=== PATIENT | female | born 1980 | race Caucasian/White ===

== ENCOUNTER 2021-04-28 07:21 | Observation (INO) | payer BC ==
[~2021-04-28] VITALS: Ht 165.1 cm; Wt 90.5 kg
[2021-04-28 07:52] LABS: BASOPHILS 0.9 % (0-2); EOSINOPHILS 0.9 % (0-7); HEMATOCRIT 34.9 % (36.0-48.0); LYMPHOCYTES 20.5 % (15-50); MCH 29.7 pg (26.0-34.0); MCHC 34.4 g/dL (31.0-37.0); MCV 86.3 fL (80.0-100.0); MEAN PLATELET VOLUME 6.8 fL (7.4-10.4); MONOCYTES 11.8 % (2-11); NEUTROPHILS 65.9 % (40-80); RBC 4.05 10x6/uL (4.00-5.40); RDW 12.6 % (11.5-14.5); WBC 11.7 10x3/uL (4.8-10.8)
[2021-04-28] MEDS ORDERED: NEXIUM20 MG PO (07:54)
[2021-04-28] MEDS ORDERED: TENORMIN25 MG PO (07:54)
[2021-04-28 07:57] LABS: CALC OSMOLALITY 276 mosm/kg (275-300); CARBON DIOXIDE 26.3 mmol/L (21.0-32.0); CHLORIDE - SERUM 104 mmol/L (98-107); CREATININE - SERUM 0.6 mg/dL (0.6-1.3); GLUCOSE 117 mg/dL (74-106); PLATELET COUNT 489 10x3/uL (130-400); POTASSIUM - SERUM 3.9 mmol/L (3.5-5.1); SODIUM 139 mmol/L (136-145); UREA NITROGEN 8 mg/dL (7-18); eGFR NON AFRICAN AMERICAN > 90 mL/min (90-120)
[2021-04-28 08:07] LABS: ALBUMIN 3.2 g/dL (3.4-5.0); ALKALINE PHOSPHATASE 121 U/L (30-120); ALT (SGPT) 51 U/L (10-68); AMYLASE - SERUM 32 U/L (25-115); BILIRUBIN - TOTAL 0.59 mg/dL (0.2-1.3); LIPASE 55 U/L (73-393); PROTEIN - SERUM 7.5 g/dL (6.4-8.2)
[2021-04-28 08:08] LABS: TROPONIN-I < 0.017 ng/mL (0.000-0.060)
[2021-04-28 08:21] LABS: BILIRUBIN NEGATIVE (NEGATIVE); KETONE NEGATIVE (NEGATIVE); NITRITE NEGATIVE (NEGATIVE); UROBILINOGEN NORMAL mg/dL (< 2)
[2021-04-28 08:23] LABS: HCG URINE NEGATIVE (NEGATIVE)
[2021-04-28 10:25] VITALS: BP 112/67
--- NOTE | 2021-04-28 16:14 | NUR ---
DR. OVIDIO CHANCE PT ADMITTED TO OBSERVATION, NOTIFIED [facility]. SHE CALLED FOR STAT CLEAN ON 2226.
--- NOTE | 2021-04-28 16:48 | NUR ---
1630-PT IS FINISHED WITH RECOVERY PHASE 1, BED IS NOT CLEAN ON FLOOR. WILL CONTINUE TO HOLD PT IN PACU... 1640- FLOOR BED STILL NOT CLEAN, WILL CONTINUE TO HOLD PATIENT IN PACU.
[2021-04-28 17:29] VITALS: BP 128/75
--- NOTE | 2021-04-28 17:30 | NUR ---
TO ROOM. SITUATED COMFORTABLY. VITAL SIGNS STABLE. DENIES ANY NEEDS AT THIS TIME. BED IN LOWEST POSITION, BED RAILS X2, CALL LIGHT WITHIN REACH. WILL CONTINUE POC.
[2021-04-28] MEDS ORDERED: KLONOPIN1 MG PO (17:34)
--- NOTE | 2021-04-28 18:09 | NUR ---
IV FLUIDS HUNG. RESTING COMFORTABLY. WILL CONTINUE POC.
[2021-04-28 20:00] VITALS: BP 135/80
[2021-04-29 01:03] VITALS: BP 132/78; Ht 165.1 cm; Wt 90.5 kg
--- NOTE | 2021-04-29 03:14 | NUR ---
I have reviewed this patient and I concur with the Shift Assessment completed by the Licensed Practical Nurse today this shift.
[2021-04-29 04:00] VITALS: BP 126/69
--- NOTE | 2021-04-29 06:11 | NUR ---
PT WAS A THER DOOR AND REQUESTED ARNIE TO HELP HER. PT WAS CRYING AND STATED THAT SHE WAS ON THE CALL LIGHT FOR 30 MINUTES SHE WAS PRESSING THE RED BOTTON AND THE WALL, ARNIE EXPLAINED HER THAT SHE DOESN'T NEED TO PUSH THE LIGHT IN THE WALL BECAUSE IT TURNS OFF THE LIGHT OUTSIDE. PT EXPRESS THAT SHE WAS IN PAIN AND REQUESTED A DOSE OF PAIN MED TO HELP BOLUS WAS PROVIDED FOR PT, WILL CONT TO MONITOR.
[2021-04-29 06:23] LABS: BASOPHILS 0.3 % (0-2); EOSINOPHILS 0 % (0-7); HEMATOCRIT 35.1 % (36.0-48.0); HEMOGLOBIN 11.7 g/dL (12-16); LYMPHOCYTES 7.2 % (15-50); MCH 29.1 pg (26.0-34.0); MCHC 33.4 g/dL (31.0-37.0); MCV 87.2 fL (80.0-100.0); MONOCYTES 8.1 % (2-11); NEUTROPHILS 84.4 % (40-80); PLATELET COUNT 420 10x3/uL (130-400); RBC 4.03 10x6/uL (4.00-5.40); RDW 12.4 % (11.5-14.5); WBC 12.7 10x3/uL (4.8-10.8)
[2021-04-29 06:40] LABS: ALBUMIN 2.6 g/dL (3.4-5.0); ALKALINE PHOSPHATASE 110 U/L (30-120); BILIRUBIN - TOTAL 0.45 mg/dL (0.2-1.3); CALC OSMOLALITY 276 mosm/kg (275-300); CALCIUM 8.9 mg/dL (8.5-10.1); CHLORIDE - SERUM 106 mmol/L (98-107); CREATININE - SERUM 0.6 mg/dL (0.6-1.3); GLUCOSE 113 mg/dL (74-106); POTASSIUM - SERUM 4.1 mmol/L (3.5-5.1); PROTEIN - SERUM 7.4 g/dL (6.4-8.2); SODIUM 139 mmol/L (136-145); UREA NITROGEN 8 mg/dL (7-18); eGFR NON AFRICAN AMERICAN > 90 mL/min (90-120)
[2021-04-29 06:41] LABS: ALT (SGPT) 68 U/L (10-68)
--- NOTE | 2021-04-29 08:00 | NUR ---
PATIENT IN BED WITH EYES CLOSED RESTING QUIETLY AT THIS TIME. IV INTACT. NS AND AT RISK SPECIALIST ON. NO COMPLAINTS OR SIGNS OF DISTRESS. CALL LIGHT WITHIN REACH.
[2021-04-29 08:46] VITALS: BP 139/79
[2021-04-29] MEDS ORDERED: COLACE100 MG PO (08:51)
[2021-04-29] MEDS ORDERED: HYDROCODON-ACE1 EA10 PO (08:51)
--- NOTE | 2021-04-29 11:37 | NUR ---
PATIENT IN BED WAS RESTING BUT WOKE UP AND STATED NAUSEATED AT THIS TIME. ZOFRAN GIVEN IVP. CALL LIGHT WITHIN REACH.
[2021-04-29 13:10] VITALS: BP 133/81
--- NOTE | 2021-04-29 13:48 | NUR ---
PATIENT UP AMBULATING IN [place] WITH DAUGHTER.
--- NOTE | 2021-04-29 14:20 | NUR ---
PATIENT IN BED. STATING THAT ZOFRAN IS NOT HELPING AT THIS TIME AND IS STILL VERY NAUSEATED. EXPLAINED I WOULD TALK TO TIMOTHY. VERBALIZED UNDERSTANDING.
--- NOTE | 2021-04-29 15:00 | NUR ---
PATIENT RECIEVED REGLAN IVP BY KIN ROBLES AT THIS TIME PER INIDA ORDER. ALSO GIVEN MINERAL OIL TO HELP WITH BM. PATIENT FAMILY AT BEDSIDE. CALL LIGHT WITHIN REACH.
--- NOTE | 2021-04-29 16:33 | NUR ---
PATIENT THREW UP SMALL AMOUNT AT THIS TIME. UP TO SHOWER WITH AND DAUGHTER. WILL CONTINUE TO MONITOR.
--- NOTE | 2021-04-29 17:44 | NUR ---
PATIENT RECIEVED PHERNERGAN IM. ONE TIME DOSE BY TIMOTHY PHELPS. GIVEN BY RENE ROBLES. PATIENT STILL VOMITTING YELLOW COLOR EMESIS. WILL CONTINUE TO MONITOR. CALL LIGHT WITHIN REACH.
[2021-04-29 17:55] VITALS: BP 142/75
--- NOTE | 2021-04-29 18:50 | NUR ---
STATED THAT PATIENT IS SLEEPING NOW AND HASNT THROWN UP IN OVER AN HOUR. REPORT GIVEN TO NIGHT NURSE.
--- NOTE | 2021-04-29 19:53 | NUR ---
SPOKE WITH DR. GUO ABOUT PATIENT STILL NAUSEATED AND VOMITTING. NEW ORDERS RECIEVED. NOTIFIED NIGHT NURSE.
[2021-04-29 20:00] VITALS: BP 137/73
--- NOTE | 2021-04-29 20:00 | NUR ---
DUCOLAX SUPP GIVEN ORDERED, ZOFRAN GIVEN FOR CONTINUED NAUSEA AND VOMITING, REQUESTING PAIN PILL,INSTRUCTED WILL WAIT FRO A FEW MINUITES BEFORE TRYING PAIN MED
--- NOTE | 2021-04-29 20:37 | NUR ---
REPORTED SHE PASSED GAS, TRYING TO AVOID PAIN MEDS, ENCOURAGED TO WALK
--- NOTE | 2021-04-29 22:30 | NUR ---
PT REQUESTING IV PAIN MEDS DUE TO N/V, ATTEMPTED TO CALL DR GUO X 3 WITH [facility] SAYING NOT AVAILABLE, PT RESTING AT THIS TIME EYES CLOSED
[2021-04-30] VITALS: BP 147/82
--- NOTE | 2021-04-30 02:23 | NUR ---
REPORTS HAD BM, NAUSEA VOMITING CONTINUES
[2021-04-30 04:00] VITALS: BP 148/90
[2021-04-30 09:14] VITALS: BP 161/82
--- NOTE | 2021-04-30 09:59 | NUR ---
DC EDUCATIO PROVIDED BOTH WRITTEN AND VERBAL TO PATIENT AND AT BEDSIDE. BOTH DENY FURTHER NEED OR QUESTIONS. IV REMOVED FROM LFA WITH TIP INTACT. PATIENT DC HOME WITH ALL BELONGINGS AND RX FOR PRN PAIN MEDICATION AND STOOL SOFTENER. PATIENT HAD BM ON PM SHIFT.
--- NOTE | 2021-04-30 10:32 | NUR ---
PATIENT WAS GIVEN ODT ZOFRAN AND PRN PAIN MEDICATION PRIOR TO DC HOME PER PATIENT REQUEST. PRIOR TO GIVING DC INSTRUCTIONS, PATIENT'S WAS AT DESK SAYING PATIENT HAD BEEN IN HOSPITAL THREE DAYS AND WAS READY TO LEAVE. ALSO STATED PATIENT HAD BM ON JINRIKSHA DRIVER. PATIENT WAS NOT THROWING UP AND HAD NOT THROWN UP ON AM SHIFT THIS MORNING BUT SAID WAS NAUSEAS. ASKED PATIENT AND IF THEY WERE COMFORTABLE BEING DC HOME AND BOTH STATED WERE READY TO BE DISCHARGED. SINCE PATIENT HAD THREE HOUR RIDE HOME, EMESIS BAG X 2 WERE PROVIDED. PATIENT AND DENIED FURTHER NEEDS. PATIENT WAS WHEELED OUT THROUGH ER WITH ALL BELONGINGS. NO VOMITING ON RIDE TO ER. RIGHT AFTER PATIENT LEFT, RECEIVED CALL FROM DR NOLAN. DR NOLAN STATES THAT PATIENT'S TEXTED HIM TO NOTIFY HIM THAT PATIENT WAS DISCHARGED EVEN THOUGH SHE WAS "THROWING UP ON HER RIDE OUT IN THE WHEELCHAIR." PREVIOUSLY STATED, PATIENT WAS NOT THROWING UP DURING DISCHARGE AND DID NOT EXPRESS CONCERNS ABOUT BEING DISCHARGED HOME.
--- NOTE | 2021-05-13 12:37 | OP ---
PATIENT NAME: LEE FLANAGAN MEDICAL RECORD: [id number] :80 LOCATION:D.MS [id number] ADMISSION DATE:04/28/21 SURGEON: NATALIO NOLAN MD DATE OF OPERATION: 04/28/2021 PREOPERATIVE DIAGNOSES: 1. Symptomatic gallstones. 2. Possible appendicitis by CT scan. POSTOPERATIVE DIAGNOSES: 1. Symptomatic gallstones. 2. Possible appendicitis by CT scan. 3. Hepatomegaly. PROCEDURE: 1. Laparoscopic cholecystectomy. 2. Intraoperative cholangiography without immediate surgeon interpretation. 3. A 14-gauge core needle liver biopsies. 4. Laparoscopic appendectomy. SURGEON: Natalio Nolan M.D. PRINTER SMALL PRINT SHOP: None. BLOOD LOSS: Minimal. ANESTHESIA: General. COMPLICATIONS: None. The risks, possible complications, and alternatives to the procedure were explained to the patient. She elects to proceed. The discussion specifically included, but was not limited to, bleeding requiring An emergency reoperation, infection, intestinal injury as well as staple line leakage. The indication for the liver biopsy was hepatomegaly. OPERATIVE COURSE: The patient was conveyed to the operating room electively on 04/28/2021. General anesthesia was induced by the anesthesia staff. The abdomen was sterilely prepped and draped. An incision was accomplished within the umbilicus. I dissected down to the level of a small incarcerated umbilical hernia. Incarcerated preperitoneal fat was excised. I then sharply cleaned the connective tissue from around the umbilical fascial defect. Stay sutures of 0 Vicryl were placed on either side of the umbilicus. I incised the fascia in the midline. I entered the peritoneal cavity bluntly. A 12-mm trocar was placed. CO2 insufflation was begun. Once a sufficient pneumoperitoneum had been achieved 3 more trocars were inserted. One was inserted in the left upper quadrant. One was inserted in the epigastrium and one was inserted in the right upper quadrant. These were 5-mm trocars. During insertion of the trocars, there was no apparent injury to the bowels, any intraperitoneal or retroperitoneal structures. An abdominal survey was undertaken and I noted no acute inflammatory process. The liver was enlarged and that was indication for a OPERATIVE REPORT [id number] LEE FLANAGAN liver biopsy. Under laparoscopic guidance, I percutaneously accessed the right upper quadrant utilizing a 14-guage core biopsy device. Cores were obtained over the convexity of the liver. The biopsy sites were made hemostatic with electrocautery. The gallbladder was grasped at tip. I advanced a cholangiogram trocar. I punctured the fundus of the gallbladder. I aspirated bile. I then injected dye. Under real time fluoroscopy, static images were obtained and these are cholangiographic images that were sent to the radiologist for interpretation. I aspirated bile and removed the cholangiogram trocar. The gallbladder was retracted cephalad. The infundibulum was retracted laterally. Blunt dissection was begun in the triangle of Calot. One the cystic artery and one cystic duct were identified. These were clipped multiple and divided between clips. The gallbladder was then excised from its bed in the liver. It was placed within a bag retrieval device and was withdrawn through the umbilical fascial defect. A 12 mm trocars were placed and the abdomen reinsufflated. I irrigated and aspirated in the right upper quadrant. There was no bleeding even at low pressure of 8. The patient was then positioned in the Trendelenburg position and tilted to the left. Utilizing the same trocar sites I was able to identify the appendix, which did appear inflamed. It was retracted anteriorly. The mesoappendix was taken down with the laparoscopic EnSeal device. I dissected down to the base of the appendix. I stapled across the tip of the cecum with an Endo-KARLA type stapler utilizing a blue load. The appendix was placed within a bag retrieval device and was withdrawn through the umbilical fascial defect. A 12 mm trocar was placed and the abdomen reinsufflated. I irrigated and aspirated in the right upper quadrant. There was no bleeding even at low pressure of 8. All the trocars were removed and the abdomen desufflated. The umbilical fascial defect was closed with multiple 0 Vicryl sutures and this also closed the umbilical hernia defect. The skin was approximated with an intracuticular 3-0 Vicryl. The rest of the skin closure was accomplished with interrupted intradermic interrupted 4-0 Vicryl Rapide sutures. Trocar sites were closed with interrupted intracuticular 3-0 Vicryls. Benzoin and Steri-Strips were applied. The patient was then extubated and conveyed to post-anesthesia care unit. TRANSINT:[id number] Voice Confirmation ID: [id number] DOCUMENT ID: [id number] OPERATIVE REPORT [id number] LEE FLANAGAN, NATALIO LONDON at 1237 CC: [id number] DICTATION DATE: 05/13/21 1017 YOGHURT MAKER: 05/13/21 1049 DIS IN 04/30/21 [place] [id number] [place] [id number]
== END 2021-04-30 10:07 | disposition home or self-care (01) ==
LOC: D.ER 07:21 → D.MS 16:19 → OBSVTIME 16:19 → D.MS 04-30 10:07
PROVIDERS: Family Medicine; ADMIT Surgery; ATTEND Surgery
DX: K37 Unspecified appendicitis (principal); K80.20 Calculus of gallbladder without cholecystitis without obstruction; R10.9 Unspecified abdominal pain; I10 Essential (primary) hypertension; K21.9 Gastro-esophageal reflux disease without esophagitis

== ENCOUNTER 2021-05-03 16:45 | Inpatient (IN) | payer BC ==
[~2021-05-03] VITALS: Ht 165.1 cm; Wt 98.2 kg
[~2021-05-03 16:45] MED LIST: COLACE100 MG PO; HYDROCODON-ACE1 EA10 PO; KLONOPIN1 MG PO; NEXIUM20 MG PO; TENORMIN25 MG PO
[2021-05-03 20:00] VITALS: BP 167/91
[2021-05-03 21:00] VITALS: BP 138/84
[2021-05-03 22:00] VITALS: BP 154/92
[2021-05-03 22:00] LABS: HEMATOCRIT 25.7 % (36.0-48.0); HEMOGLOBIN 8.5 g/dL (12-16); MCH 29.3 pg (26.0-34.0); MCHC 32.9 g/dL (31.0-37.0); MCV 89.1 fL (80.0-100.0); MEAN PLATELET VOLUME 7.4 fL (7.4-10.4); PLATELET COUNT 300 10x3/uL (130-400); RBC 2.89 10x6/uL (4.00-5.40); RDW 13.2 % (11.5-14.5); WBC 26.6 10x3/uL (4.8-10.8)
[2021-05-03 22:09] LABS: APTT 24.3 SECONDS (22.8-39.4)
[2021-05-03 22:10] LABS: INR 1.37 (0.85-1.17); PROTIME 15.6 SECONDS (11.6-15.0)
[2021-05-03 22:16] LABS: ALBUMIN 1.9 g/dL (3.4-5.0); ANION GAP 11.6 mmol/L (8-16); BILIRUBIN - TOTAL 0.57 mg/dL (0.2-1.3); CALCIUM 8.5 mg/dL (8.5-10.1); CARBON DIOXIDE 30.4 mmol/L (21.0-32.0); CREATININE - SERUM 2.8 mg/dL (0.6-1.3); MAGNESIUM - SERUM 2.3 mg/dL (1.8-2.4); PHOSPHOROUS 4.3 mg/dL (2.5-4.9); PROTEIN - SERUM 6.4 g/dL (6.4-8.2)
[2021-05-03 22:37] LABS: EOSINOPHILS 3 % (0-7); LYMPHOCYTES 6 % (15-50); MONOCYTES 2 % (2-11); NEUTROPHILS 89 % (40-80); PLATELET ESTIMATE NORMAL
[2021-05-03 23:00] VITALS: BP 155/89
[2021-05-04] VITALS (25 sets, daily range): BP systolic 131–171; BP diastolic 76–102; BMI 36.6; BMI 36.7
[2021-05-04 04:51] LABS: BASOPHILS 0.2 % (0-2); EOSINOPHILS 0.1 % (0-7); HEMATOCRIT 22.6 % (36.0-48.0); HEMOGLOBIN 7.5 g/dL (12-16); LYMPHOCYTES 5.2 % (15-50); MCH 29.2 pg (26.0-34.0); MCHC 33.1 g/dL (31.0-37.0); MCV 88.3 fL (80.0-100.0); MEAN PLATELET VOLUME 7.1 fL (7.4-10.4); MONOCYTES 7.3 % (2-11); NEUTROPHILS 87.2 % (40-80); PLATELET COUNT 284 10x3/uL (130-400); RBC 2.56 10x6/uL (4.00-5.40); RDW 13.4 % (11.5-14.5); WBC 22.3 10x3/uL (4.8-10.8)
[2021-05-04 05:08] LABS: ANION GAP 13.9 mmol/L (8-16); CALCIUM 7.8 mg/dL (8.5-10.1); CARBON DIOXIDE 26.9 mmol/L (21.0-32.0); CREATININE - SERUM 2.5 mg/dL (0.6-1.3); MAGNESIUM - SERUM 2.3 mg/dL (1.8-2.4); POTASSIUM - SERUM 3.8 mmol/L (3.5-5.1)
[2021-05-04 05:12] LABS: INR 1.41 (0.85-1.17)
[2021-05-04 05:25] LABS: APTT 33.5 SECONDS (22.8-39.4)
--- NOTE | 2021-05-04 06:39 | NUR ---
Pt resting at this time. The Pt has rested the later part of the night with on some pain and nausea noted. The Pt is still having some nausea even with the NG tube in place. Dr. Ingram has not been notified of his consult, 3 attempts to page him were made, the Pt is in no distress at this time.
--- NOTE | 2021-05-04 09:37 | NUR ---
CENTRAL LINE PLACED TO LEFT IJ. XRAY PLACEMENT CONFIRMED BY BAM AGUIRRE. LINES CHANGED. DRESSING CDI.
[2021-05-04 10:23] LABS: INR 1.23 (0.85-1.17); PROTIME 14.4 SECONDS (11.6-15.0)
[2021-05-04 16:11] LABS: HEMATOCRIT 22.7 % (36.0-48.0)
[2021-05-04 16:15] LABS: INR 1.33 (0.85-1.17); PROTIME 15.3 SECONDS (11.6-15.0)
[2021-05-04 16:18] LABS: HEMOGLOBIN 7.2 g/dL (12-16)
[2021-05-04 16:22] LABS: APTT 26.6 SECONDS (22.8-39.4)
[2021-05-04 16:36] LABS: ANION GAP 11.2 mmol/L (8-16); CALCIUM 7.6 mg/dL (8.5-10.1); CARBON DIOXIDE 28.4 mmol/L (21.0-32.0); CREATININE - SERUM 2.2 mg/dL (0.6-1.3); POTASSIUM - SERUM 3.6 mmol/L (3.5-5.1)
[2021-05-04 16:53] LABS: BILIRUBIN NEGATIVE (NEGATIVE); KETONE SMALL mg/dL (NEGATIVE); NITRITE NEGATIVE (NEGATIVE); UROBILINOGEN NORMAL mg/dL (< 2)
[2021-05-04 16:55] LABS: BACTERIA FEW HPF (NONE SEEN); SQUAMOUS EPITHELIAL 0-5 HPF (0-4); WHITE CELLS - URINE 0-5 HPF (0-4)
[2021-05-04 22:57] LABS: INR 1.3 (0.85-1.17)
[2021-05-04 23:00] LABS: APTT 34.3 SECONDS (22.8-39.4)
[2021-05-05] VITALS (24 sets, daily range): BP systolic 139–168; BP diastolic 91–114; Ht 165.1 cm; Wt 98.2 kg
[2021-05-05 04:56] LABS: INR 1.23 (0.85-1.17); PROTIME 14.4 SECONDS (11.6-15.0)
[2021-05-05 05:06] LABS: % SATURATION 22 % (15-55); APTT 41.3 SECONDS (22.8-39.4); IRON 38 ug/dl (35-150); TOTAL IRON BIND CAPACITY 170 ug/dl (260-445); UNSAT IRON BIND CAPACITY 132 ug/dl (150-375)
[2021-05-05 05:31] LABS: VANCOMYCIN - RANDOM 30.4 ug/mL (10.0-20.0)
[2021-05-05 07:18] LABS: ANION GAP 12.3 mmol/L (8-16); CARBON DIOXIDE 28.3 mmol/L (21.0-32.0); POTASSIUM - SERUM 3.6 mmol/L (3.5-5.1)
[2021-05-05 07:24] LABS: ALBUMIN 1.6 g/dL (3.4-5.0); BILIRUBIN - TOTAL 0.91 mg/dL (0.2-1.3); MAGNESIUM - SERUM 2.4 mg/dL (1.8-2.4); PROTEIN - SERUM 5.6 g/dL (6.4-8.2)
[2021-05-05 07:30] LABS: BASOPHILS 0 % (0-2); EOSINOPHILS 0.6 % (0-7); HEMATOCRIT 25.8 % (36.0-48.0); HEMOGLOBIN 8.4 g/dL (12-16); LYMPHOCYTES 5.9 % (15-50); MCH 29.1 pg (26.0-34.0); MCHC 32.7 g/dL (31.0-37.0); MCV 88.9 fL (80.0-100.0); MONOCYTES 7.8 % (2-11); NEUTROPHILS 85.7 % (40-80); PLATELET COUNT 262 10x3/uL (130-400); RDW 13.7 % (11.5-14.5); WBC 23.3 10x3/uL (4.8-10.8)
--- NOTE | 2021-05-05 11:30 | NUR ---
Nutrition follow-up: TPN infusing @ 40 ml/hr Chart and labs reviewed Will continue current TPN today and recheck labs 05/06/21.
[2021-05-05 12:42] LABS: PROTIME 12.2 SECONDS (11.6-15.0)
[2021-05-05 12:55] LABS: APTT 20.2 SECONDS (22.8-39.4)
[2021-05-05 14:47] LABS: ANION GAP 8.1 mmol/L (8-16); CARBON DIOXIDE 29.4 mmol/L (21.0-32.0); CREATININE - SERUM 1.8 mg/dL (0.6-1.3); POTASSIUM - SERUM 3.5 mmol/L (3.5-5.1)
[2021-05-05 16:20] LABS: PROTIME 14.6 SECONDS (11.6-15.0)
[2021-05-05 16:25] LABS: APTT 69.7 SECONDS (22.8-39.4); INR 1.26 (0.85-1.17)
[2021-05-06] VITALS (25 sets, daily range): BP systolic 126–170; BP diastolic 80–118
[2021-05-06 05:00] LABS: BASOPHILS 0.2 % (0-2); EOSINOPHILS 1.7 % (0-7); HEMATOCRIT 30.2 % (36.0-48.0); HEMOGLOBIN 10.1 g/dL (12-16); LYMPHOCYTES 7.9 % (15-50); MCH 29.4 pg (26.0-34.0); MCHC 33.4 g/dL (31.0-37.0); MEAN PLATELET VOLUME 7.8 fL (7.4-10.4); MONOCYTES 9.1 % (2-11); NEUTROPHILS 81.1 % (40-80); PLATELET COUNT 243 10x3/uL (130-400); RBC 3.43 10x6/uL (4.00-5.40); RDW 13.8 % (11.5-14.5); WBC 23.8 10x3/uL (4.8-10.8)
[2021-05-06 05:05] LABS: ALBUMIN 1.7 g/dL (3.4-5.0); ANION GAP 7.8 mmol/L (8-16); BILIRUBIN - TOTAL 0.91 mg/dL (0.2-1.3); CALCIUM 7.9 mg/dL (8.5-10.1); CARBON DIOXIDE 28.8 mmol/L (21.0-32.0); CREATININE - SERUM 1.6 mg/dL (0.6-1.3); MAGNESIUM - SERUM 2.1 mg/dL (1.8-2.4); PHOSPHOROUS 2.7 mg/dL (2.5-4.9); POTASSIUM - SERUM 3.6 mmol/L (3.5-5.1); PROTEIN - SERUM 5.9 g/dL (6.4-8.2)
--- NOTE | 2021-05-06 07:32 | NUR ---
PT RESTING, RR EVEN AND UNLABORED. AUDIBLE WHEEZING NOTED. PT ENCOURAGED TO USE INCENTIVE SPIROMETER AND FLUTTER VALVE. RETURN DEMONSTRATED WITH PROPER TECHNIQUE. 1000 ON I.S. CALL LIGHT WITHIN REACH. DENIES NEEDS OR PAIN AT THIS TIME. BED IN LOWEST POSITION.
--- NOTE | 2021-05-06 08:30 | NUR ---
PT UP TO CHAIR WITH MINIMAL ASSIST.
[2021-05-06 11:11] LABS: ERYTHROPOIETIN 24.3 mIU/mL (2.6-18.5); HEP B CORE AB TOTAL Negative (Negative); HEPATITIS C ANTIBODY <0.1 S/CO RAT (0.0-0.9)
--- NOTE | 2021-05-06 12:13 | NUR ---
ASSISTING PRIMARY NURSE IN PT ROOM WITH K PAD AND PT JUST REC' CONTRAST VIA NGTUBE AND REPORTS SEVERE ABD CRAMPING. ASSISTED PRIMARY NURSE WITH ADMINISTERING PRN PAIN MED. PT REPORTS PAIN 9/10.
[2021-05-06 13:13] LABS: INR 3.46 (0.85-1.17); PROTIME 32.4 SECONDS (11.6-15.0)
--- NOTE | 2021-05-06 13:56 | NUR ---
Nutrition follow-up: Spoke with Dr. Syed during ICU pt rounds. Pt to be on TPN for an extended peroid of time; TPN to increase today to 60 ml/hr with 20% 250 ml intralipids q 48 hours to provide: 1410 kcal, 72 gm protein This will meet 70-82% estimated kcal needs and 100% of estimated protein needs. RDN will monitor daily and adjust TPN as needed.
--- NOTE | 2021-05-06 14:54 | NUR ---
PT SPOUSE REPORTS PT C/O PAIN AFTER MOVING BACK TO BED. PT REQUESTING PAIN MED AND REPORTING PAIN 8/10.
[2021-05-07] VITALS (21 sets, daily range): BP systolic 125–163; BP diastolic 73–118
[2021-05-07 05:44] LABS: BASOPHILS 0.2 % (0-2); EOSINOPHILS 1.7 % (0-7); HEMATOCRIT 31.6 % (36.0-48.0); HEMOGLOBIN 10.3 g/dL (12-16); LYMPHOCYTES 6.1 % (15-50); MCH 29.1 pg (26.0-34.0); MCHC 32.7 g/dL (31.0-37.0); PLATELET COUNT 265 10x3/uL (130-400); RBC 3.55 10x6/uL (4.00-5.40); RDW 13.8 % (11.5-14.5); WBC 22.6 10x3/uL (4.8-10.8)
[2021-05-07 06:03] LABS: ALBUMIN 1.7 g/dL (3.4-5.0); ANION GAP 5.5 mmol/L (8-16); BILIRUBIN - TOTAL 0.74 mg/dL (0.2-1.3); CALCIUM 8.4 mg/dL (8.5-10.1); CARBON DIOXIDE 33.1 mmol/L (21.0-32.0); CREATININE - SERUM 1.5 mg/dL (0.6-1.3); POTASSIUM - SERUM 3.6 mmol/L (3.5-5.1); PROTEIN - SERUM 6.1 g/dL (6.4-8.2); VANCOMYCIN - RANDOM 11.4 ug/mL (10.0-20.0)
[2021-05-07 06:17] LABS: APTT 88.7 SECONDS (22.8-39.4); INR 8.15 (0.85-1.17); PROTIME 63.6 SECONDS (11.6-15.0)
--- NOTE | 2021-05-07 09:18 | NUR ---
SPO2 87% WITH NC ON SIDE OF FACE. REAPPLIED AND SPO2 95%. INSTRUCT I.S. OOB TO CHAIR.
--- NOTE | 2021-05-07 09:44 | NUR ---
Nutrition follow-up: Chart and labs reviewed. TPN now infusing @ 60 ml/hr with 20% 250 ml intralipids q 48 hours Wt: 223# NPO Will continue current TPN regimen today and reassess labs 05/08/21
--- NOTE | 2021-05-07 13:35 | NUR ---
PEGGY AMB DEPT WITH THIS RN.
[2021-05-07 17:09] LABS: FACTOR II DNA ANALYSIS Negative (())
[2021-05-08] VITALS (23 sets, daily range): BP systolic 126–164; BP diastolic 64–99
[2021-05-08 06:39] LABS: HEMATOCRIT 27.8 % (36.0-48.0); HEMOGLOBIN 9.1 g/dL (12-16); MCH 29.1 pg (26.0-34.0); MCHC 32.8 g/dL (31.0-37.0); MCV 88.5 fL (80.0-100.0); MEAN PLATELET VOLUME 8.2 fL (7.4-10.4); PLATELET COUNT 262 10x3/uL (130-400); RBC 3.14 10x6/uL (4.00-5.40)
[2021-05-08 06:40] LABS: APTT 96.2 SECONDS (22.8-39.4)
[2021-05-08 06:56] LABS: ANION GAP 10.5 mmol/L (8-16); BILIRUBIN - TOTAL 0.95 mg/dL (0.2-1.3); CALCIUM 8.2 mg/dL (8.5-10.1); CARBON DIOXIDE 26.9 mmol/L (21.0-32.0); CREATININE - SERUM 1.3 mg/dL (0.6-1.3); PHOSPHOROUS 2.7 mg/dL (2.5-4.9); POTASSIUM - SERUM 3.4 mmol/L (3.5-5.1); PROTEIN - SERUM 5.7 g/dL (6.4-8.2); VANCOMYCIN - RANDOM 10.9 ug/mL (10.0-20.0)
[2021-05-08 06:59] LABS: ALBUMIN 2.3 g/dL (3.4-5.0); INR 7.99 (0.85-1.17); PROTIME 62.6 SECONDS (11.6-15.0)
--- NOTE | 2021-05-08 07:37 | NUR ---
Nutrition follow-up: Chart and labs reviewed K 3.4; recommend rider Will continue current TPN @ 60 ml/hr today and reevaluate 05/09/21.
[2021-05-08 07:38] LABS: ANISOCYTOSIS OCC; LYMPHOCYTES 14 % (15-50); MONOCYTES 3 % (2-11); NEUTROPHILS 83 % (40-80); PLATELET ESTIMATE NORMAL
--- NOTE | 2021-05-08 11:18 | NUR ---
EXTRA LARGE LIQUID BROWN STOOL NOTED AT THIS TIME APPROX 500ML. TOTAL LINEN CHANGE PROVIDED. TAHIR CARE/CARBALLO CARE PROVIDED. NO ACUTE DISTRESS NOTED. WILL CONTINUE PLAN OF CARE.
[2021-05-09] VITALS (21 sets, daily range): BP systolic 108–164; BP diastolic 63–99
[2021-05-09 01:35] LABS: BILIRUBIN NEGATIVE (NEGATIVE); KETONE NEGATIVE mg/dL (< 1+); NITRITE NEGATIVE (NEGATIVE); UROBILINOGEN 4 mg/dL (< 2); WHITE CELLS - URINE 11 HPF (0-4)
[2021-05-09 05:34] LABS: APTT 79.6 SECONDS (22.8-39.4)
[2021-05-09 05:36] LABS: INR 7.64 (0.85-1.17); PROTIME 60.5 SECONDS (11.6-15.0)
[2021-05-09 05:40] LABS: BASOPHILS 0.1 % (0-2); EOSINOPHILS 0.8 % (0-7); HEMATOCRIT 27.8 % (36.0-48.0); HEMOGLOBIN 9.1 g/dL (12-16); IMMATURE GRANULOCYTES 1.9 % (0-5); LYMPHOCYTE ABS# 1.24 10x3/uL (1.18-3.74); LYMPHOCYTES 4.7 % (15-50); MCH 29.2 pg (26.0-34.0); MCHC 32.7 g/dL (31.0-37.0); MCV 89.1 fL (80.0-100.0); MEAN PLATELET VOLUME 10.3 fL (7.4-10.4); MONOCYTES 7.8 % (2-11); NEUTROPHIL ABS# 22.41 10x3/uL (1.56-6.13); NEUTROPHILS 84.7 % (40-80); PLATELET COUNT 332 10x3/uL (130-400); RBC 3.12 10x6/uL (4.00-5.40); RDW 13.7 % (11.5-14.5); WBC 26.4 10x3/uL (4.8-10.8)
[2021-05-09 05:53] LABS: ALBUMIN 2.2 g/dL (3.4-5.0); ANION GAP 12.2 mmol/L (8-16); BILIRUBIN - TOTAL 1.15 mg/dL (0.2-1.3); CALCIUM 8.1 mg/dL (8.5-10.1); CARBON DIOXIDE 25.1 mmol/L (21.0-32.0); CREATININE - SERUM 1.1 mg/dL (0.6-1.3); POTASSIUM - SERUM 3.3 mmol/L (3.5-5.1); PROTEIN - SERUM 5.8 g/dL (6.4-8.2)
--- NOTE | 2021-05-09 07:19 | NUR ---
Nutrition follow-up: Chart and labs reviewed K still loww; PO4, Mg pending K increased in TPN; continue TPN at 60 ml/hr RDN will follow-up: 05-10-21
--- NOTE | 2021-05-09 07:30 | NUR ---
LAYING IN BED RESTING WITH AT BEDSIDE, PT ALERT AND ORIENTED, NO NEEDS VOICED AT THIS TIME, CALL LIGHT IN REACH, WILL MONITOR
[2021-05-09 08:47] LABS: APTT 66.4 SECONDS (22.8-39.4)
[2021-05-09 08:55] LABS: MAGNESIUM - SERUM 1.7 mg/dL (1.8-2.4); PHOSPHOROUS 2.2 mg/dL (2.5-4.9)
[2021-05-09 09:08] LABS: INR 6.33 (0.85-1.17); PROTIME 52.2 SECONDS (11.6-15.0)
--- NOTE | 2021-05-09 10:30 | NUR ---
PT SLEEPING, DAUGHTER AT BEDSIDE, WILL MONITOR
[2021-05-09 11:38] LABS: APTT 57.4 SECONDS (22.8-39.4)
[2021-05-09 11:48] LABS: INR 3.36 (0.85-1.17); PROTIME 31.7 SECONDS (11.6-15.0)
--- NOTE | 2021-05-09 12:30 | NUR ---
PT RESTING WITH AT BEDSIDE, NO NEEDS VOICED AT THIS TIME, CALL LIGHT IN REACH, WILL MONITOR
[2021-05-09 13:00] LABS: APTT 53.6 SECONDS (22.8-39.4); INR 2.95 (0.85-1.17); PROTIME 28.6 SECONDS (11.6-15.0)
[2021-05-09 15:05] LABS: APTT 52.7 SECONDS (22.8-39.4); INR 2.63 (0.85-1.17); PROTIME 26.1 SECONDS (11.6-15.0)
--- NOTE | 2021-05-09 16:00 | NUR ---
ASSISTED PT UP TO BSC, MODERATE LIQUID BM NOTED, PT UP IN RECLINER, TOLERATED WELL, FAMILY AT BEDSIDE, WILL MONITOR
--- NOTE | 2021-05-09 17:28 | NUR ---
ASSISTED PT UP OUT OF BED AND WALKING. PT DID WELL, SOME DYSPNEA ON EXERTION NOTED. PT REPORTS PAIN 8/10 AFTER WALKING WILL ADMINISTER PRN PAIN MED. PT CURRENTLY CANNOT TAKE PO PAIN MED R/T UPCOMING PROCEDURE AND IS STRICT NPO.
[2021-05-09 18:45] LABS: PROTIME 21.7 SECONDS (11.6-15.0)
[2021-05-09 18:46] LABS: APTT 48.4 SECONDS (22.8-39.4)
[2021-05-09 18:47] LABS: INR 2.08 (0.85-1.17)
--- NOTE | 2021-05-09 19:00 | NUR ---
Patient off unit for CT Thoracentesis, IV infusions continued. Family at bedside.
--- NOTE | 2021-05-09 20:00 | NUR ---
Patient returned from radiology, family at bedside. Alert, oriented, denies any needs. Respirations clear. Incision to R back with dressing clean, dry and intact. Plan of care discussed.
--- NOTE | 2021-05-09 22:01 | NUR ---
Patient calm, in bed with eyes closed, appears asleep. No sign of distress. at bedside.
[2021-05-09 23:01] LABS: PROTEIN - BODY FLUID 2.6 G/DL
[2021-05-10] VITALS (23 sets, daily range): BP systolic 128–164; BP diastolic 70–98
[2021-05-10 00:19] LABS: BASOPHILS 0.4 % (0-2); EOSINOPHILS 1.1 % (0-7); HEMATOCRIT 23.7 % (36.0-48.0); HEMOGLOBIN 7.7 g/dL (12-16); LYMPHOCYTES 6.8 % (15-50); MCH 28.5 pg (26.0-34.0); MCHC 32.3 g/dL (31.0-37.0); MCV 88.3 fL (80.0-100.0); MEAN PLATELET VOLUME 8.4 fL (7.4-10.4); MONOCYTES 10.3 % (2-11); NEUTROPHILS 81.4 % (40-80); PLATELET COUNT 341 10x3/uL (130-400); RBC 2.69 10x6/uL (4.00-5.40); RDW 14.4 % (11.5-14.5)
[2021-05-10 00:31] LABS: WBC 19.1 10x3/uL (4.8-10.8)
[2021-05-10 01:06] LABS: EOS BF 2 %; MACROPHAGES BF 40 %; NEUT - BF 34 %
[2021-05-10 06:01] LABS: BASOPHILS 0.5 % (0-2); EOSINOPHILS 1.3 % (0-7); HEMATOCRIT 23.5 % (36.0-48.0); HEMOGLOBIN 7.6 g/dL (12-16); LYMPHOCYTES 6.5 % (15-50); MCH 28.5 pg (26.0-34.0); MCHC 32.4 g/dL (31.0-37.0); MCV 87.9 fL (80.0-100.0); MEAN PLATELET VOLUME 8.5 fL (7.4-10.4); MONOCYTES 9.6 % (2-11); NEUTROPHILS 82.1 % (40-80); PLATELET COUNT 324 10x3/uL (130-400); RBC 2.68 10x6/uL (4.00-5.40); RDW 14.4 % (11.5-14.5); WBC 18.6 10x3/uL (4.8-10.8)
[2021-05-10 06:14] LABS: ALBUMIN 2.3 g/dL (3.4-5.0); ANION GAP 9.2 mmol/L (8-16); BILIRUBIN - TOTAL 1.02 mg/dL (0.2-1.3); CALCIUM 7.9 mg/dL (8.5-10.1); MAGNESIUM - SERUM 1.8 mg/dL (1.8-2.4); PHOSPHOROUS 2.7 mg/dL (2.5-4.9); POTASSIUM - SERUM 3.2 mmol/L (3.5-5.1); PROTEIN - SERUM 5.6 g/dL (6.4-8.2)
--- NOTE | 2021-05-10 06:33 | NUR ---
Shift summary: Patient alert, tolerating oral fluids. Pain and anxiety controlled with prn administrations. Thoracentesis clean, dry, intact. Currently on room air, RR 20, SpO2 97% no sign of distress.
[2021-05-10 07:22] LABS: APTT 90.9 SECONDS (22.8-39.4); INR 6.01 (0.85-1.17); PROTIME 50.1 SECONDS (11.6-15.0)
--- NOTE | 2021-05-10 07:30 | NUR ---
ASSISTED PT UP TO BSC, MODERATE BM NOTED, PT UP IN RECLINER, TOLERATING WELL, AND DAUGHTER AT BEDSIDE, CALL LIGHT IN REACH, WILL MONITOR
--- NOTE | 2021-05-10 07:53 | NUR ---
Nutrition follow-up/reassessment: Chart and labs reviewed Mg, PO4, K low; all increased in TPN formula today; will continue current rate of 60 ml/hr Wt: 220# Pt tolerating clear liquids Liquid stool in colostomy Estimated Nutrition needs, nutrition diagonsis, goals, interventions remain the same as initial assessment from 05/04/21 RDN will review labs and adjust TPNa s needed 05/11/21
--- NOTE | 2021-05-10 09:30 | NUR ---
DR ROTH HERE SEEING PATIENT
--- NOTE | 2021-05-10 11:30 | NUR ---
PT SITTING UP IN CHAIR SLEEPING, WILL MONITOR
--- NOTE | 2021-05-10 13:00 | NUR ---
PT UP AMBULATING IN [place], TOLERATING WELL, PT BACK IN BED, AT BEDSIDE, CALL LIGHT IN REACH, WILL MONITOR
--- NOTE | 2021-05-10 15:30 | NUR ---
RESTING COMFORTABLE, AT BEDSIDE, WILL MONITOR
--- NOTE | 2021-05-10 18:19 | NUR ---
CARBALLO CATHETER DC'D AT THIS TIME, PT SITTING UP IN RECLINER
[2021-05-11] VITALS (13 sets, daily range): BP systolic 123–152; BP diastolic 73–103
--- NOTE | 2021-05-11 05:19 | NUR ---
Shift summary: Patient remains on room air, occasional expiratory wheezing, and dyspnea with exertion, breathing treatment given by RT. Pain and anxiety decreased with prn administrations, ambulated to BSC with standby assist. Denies any needs.
[2021-05-11 05:57] LABS: APTT 101.5 SECONDS (22.8-39.4)
[2021-05-11 06:20] LABS: ALBUMIN 2.6 g/dL (3.4-5.0); ANION GAP 11.2 mmol/L (8-16); BILIRUBIN - TOTAL 1.39 mg/dL (0.2-1.3); CALCIUM 8.3 mg/dL (8.5-10.1); CARBON DIOXIDE 24.6 mmol/L (21.0-32.0); CREATININE - SERUM 1.1 mg/dL (0.6-1.3); POTASSIUM - SERUM 3.8 mmol/L (3.5-5.1); PROTEIN - SERUM 6.1 g/dL (6.4-8.2)
[2021-05-11 06:30] LABS: BASOPHILS 0.4 % (0-2); EOSINOPHILS 1.4 % (0-7); HEMATOCRIT 23.9 % (36.0-48.0); HEMOGLOBIN 7.8 g/dL (12-16); LYMPHOCYTES 6.4 % (15-50); MCH 29.1 pg (26.0-34.0); MCHC 32.7 g/dL (31.0-37.0); MCV 88.9 fL (80.0-100.0); MEAN PLATELET VOLUME 8.3 fL (7.4-10.4); MONOCYTES 8.6 % (2-11); NEUTROPHILS 83.2 % (40-80); PLATELET COUNT 401 10x3/uL (130-400); RBC 2.68 10x6/uL (4.00-5.40); RDW 14.6 % (11.5-14.5); WBC 21.9 10x3/uL (4.8-10.8)
[2021-05-11 06:53] LABS: PROTIME 69.6 SECONDS (11.6-15.0)
[2021-05-11 06:54] LABS: INR 9.13 (0.85-1.17)
[2021-05-11 07:24] LABS: MAGNESIUM - SERUM 1.9 mg/dL (1.8-2.4); PHOSPHOROUS 3.1 mg/dL (2.5-4.9)
--- NOTE | 2021-05-11 07:30 | NUR ---
PT UP TO TOILET AND THEN TO RECLINER, TOLERATED WELL, AT BEDSIDE, CALL LIGHT IN REACH, WILL MONITOR
--- NOTE | 2021-05-11 09:15 | NUR ---
DR SANCHEZ HERE SEEING PATIENT
--- NOTE | 2021-05-11 09:36 | NUR ---
REPROT CALLED TO SHAREE ROBLES ON MED2
--- NOTE | 2021-05-11 10:00 | NUR ---
PT TRANSFERRED TO 2112 VIA WHEELCHAIR, BELONGINGS SENT WITH PATIENT, NO DISTRESS NOTED
--- NOTE | 2021-05-11 10:28 | NUR ---
PT TO ROOM FROM ICU, AT BEDSIDE. CENTRAL LINE NOTED TO LEFT NECK, CAPPED. LAP SITES X 4 NOTED WITH STERISTRIPS. TPN SENT OVER WITH HER.
--- NOTE | 2021-05-11 11:00 | NUR ---
PT'S TPN STARTED BACK VIA CENTRAL LINE.
--- NOTE | 2021-05-11 12:00 | NUR ---
PT'S REQUESTING A SHOWER CHAIR AND COVER IV SO SHE CAN TAKE SHOWER. CHAIR FOUND AND IV STOPPED AND COVERED FOR SHOWER.
--- NOTE | 2021-05-11 12:27 | NUR ---
Nutrition follow-up: Pt now on Med2; just out of ICU TPN @ 60 ml/hr with lipids Q 48 hours labs reviewed Wt: 221# +BM Diet order: full liquids Per Dr. Silver; advance po diet Will continue current TPN formula until seen by surgeon. When diet advanced and pt is eating @ least an average of 50% of meals recommend decreasing TPN by half for 1 hour then discontinuing RDN will follow-up 05/12/21
--- NOTE | 2021-05-11 13:00 | NUR ---
PT OUT OF SHOWER AND CENTRAL LINE WET SO DRESSING CHANGED AND LINES CAPPED.
--- NOTE | 2021-05-11 16:25 | MORECARE ---
CASE MANAGEMENT DISCHARGE SUMMARY PATIENT: LEE FLANAGAN UNIT: [id number] ADM DATE: 05/03/21 AGE: 40 : 80 SEX: F ROOM/BED: D.2113 AUTHOR: KIMBERLY STONE PHYSICIAN: REFERRING PHYSICIAN: HARVINDER NOLAN MD DATE OF SERVICE: 05/11/21 Case Management Discharge Planning Summary COMMENTS ENTERED DATE: 05/11/21 16:21 CT COMMENT TYPE: Discharge Planning REVIEWER: Jose Mortensen Telephone conversation with patient's spouse, Silvestre Flanagan, at 1557 on 11 May 2021 to complete DC plan and needs. Patient lives independently with her spouse Silvestre. Mr. Flanagan stated that their home is safe and has electricity and running water. Mr. Flanagan stated that the patient can enter the home without difficulty, however at this point he is unsure of her mobility and would like for Physical Therapy to assess. Mr. Flanagan stated that the patient has no problems paying for medications and she fills her medications at [facility] in [place], [place]. Mr. Flanagan stated that the patient's primary care physician is Dr. Gail Mancera in [place]. At discharge, the patient plans to return home and feels this is a safe discharge. CM discussed availability of home health, rehab services, and medical equipment. Mr. Flanagan declined HHS, SNF, IPR, and DME at this time. Mr. Flanagan stated that there is a plan in place for his mother and other family members to watch over his while she is home during the day. Mr. Flanagan voiced no other needs at this time and is satisfied with DC plan. Transportation provider at discharge will be with Mr. Flanagan. CM will continue to follow and will assist as needed with dc plans/needs. DCP REVIEW SUMMARY ANTICIPATED D/C DATE: EXPECTED LOS : CASE STATUS: DCP Initiated INITIAL REVIEW: 05/03/2021 INITIAL REVIEWER: Jose Mortensen FINAL DISCHARGE DISPOSITION: : FINAL REVIEWER: FINAL REVIEW DATE: DCP Focus Questions & Answers DCP Evaluation QUESTION: ANSWER Patient gives permission to discuss discharge plans with: (name, relationship and number) : spouse, Silvestre Flanagan, Patient's ability to cope with chronic illness : d. No chronic illness Patient's current cognitive status: : *Oriented to person, place, situation, time and present Family / Caregiver's ability to cope with chronic illness: : a. Adequate (ability to meet patient's medical needs, ensures patient attends medical appts.) Patient and/or caregiver agree upon recommended discharge plan? : Yes Physical Status: : Independent with ADL's Family / Caregiver's ability to cope with chronic illness: : a. Adequate (ability to meet patient's medical needs, ensures patient attends medical appts.) Functional screen assessment: : Basic needs can adequately be met by self Does the patient have the ability to pay for or attain post discharge needs / services? : Yes Living Arrangements: : Home with Spouse/Significant Other Is there a likelihood that the patient will require additional services to return to the preadmission environment? : Yes Equipment needed for post hospitalization: : None Baseline cognitive status: : *Oriented to person, place, situation, time and present Patient with capacity for self-care or can be cared for in same environment as prior to hospitalization? : Yes Physical environment modification needed / anticipated for discharge: : No Medication Management: : Patient states can afford medications Medication Management: : Patient states can read and understand medication labels Pharmacy name(s): : [facility] Does Patient have transportation to get home and to follow-up medical appointments when discharged from the hospital? : Yes Would patient like to participate in any Care Coordination programs (if applicable): : Not applicable Does the patient have electricity at home? : Yes Does the patient have running water in their house? : Yes Equipment in use: : None Mental health screen: : No mental health history DCP Re-evaluation QUESTION: ANSWER Would patient like to participate in any Care Coordination programs (if applicable): : Not applicable PATIENT: LEE FLANAGAN ENCOUNTER: [id number] MEDICAL RECORD#: [id number] ADMISSION DATE: 05/03/2021 DISCHARGE DATE: ATTENDING MD: HARVINDER WOODARD : AGE: 40 MARITAL STATUS: M DC PLAN ID: [id number] FACILITY: [facility] PRINTED ON: 05/11/21 16:24 CT All edits/amendments must be made on the electronic document DICTATION DATE: 05/11/216 SKI PATROL OFFICER: YONNY 05/11/214 RPT#: [id number] DC DATE: STATUS: ADM IN [facility] [address] [place] [address] END OF REPORT
--- NOTE | 2021-05-11 16:46 | NUR ---
PT'S REQUESTING URINE SAMPLE TO BE SENT DUE TO HER HAVING BURNING NOW AFTER CARBALLO REMOVED YESTERDAY. ORDER PLACED AND SAMPLE OBTAINED.
[2021-05-11 17:09] LABS: ACID FAST SMEAR Negative (()); AFB SPECIMEN PROCESSING Concentration (())
[2021-05-11 17:30] LABS: BACTERIA FEW HPF (<MOD); BILIRUBIN NEGATIVE (NEGATIVE); KETONE NEGATIVE mg/dL (< 1+); NITRITE NEGATIVE (NEGATIVE); PH 5.5 (5.0-8.0); SQUAMOUS EPITHELIAL <1 HPF (0-4); UROBILINOGEN NORMAL mg/dL (< 2); WHITE CELLS - URINE 8 HPF (0-4)
--- NOTE | 2021-05-11 18:00 | NUR ---
PT'S TPN RESTARTED VIA CENTAL LINE. SHE PREVIOUSLY AMBULATED IN [place] WITH FAMILY, LITTLE SOB BUT PULSE OX 98%. MULTIPLE FAMILY MEMBERS HAVE BEEN IN ROOM TODAY DESPITE ONLY ONE VISITOR AT A TIME HOSPITAL POLICY.
--- NOTE | 2021-05-11 19:13 | NUR ---
RECIEVED LAYING IN BED WITH SPOUSE AT BEDSIDE. ALERT AND ORIENTED X4. UP WITH ASSIST. DENIES ANY NEEDS AT THIS TIME.
[2021-05-12] VITALS: BP 135/68
[2021-05-12 04:00] VITALS: BP 168/86
[2021-05-12 06:39] LABS: BASOPHILS 0.4 % (0-2); HEMATOCRIT 22.1 % (36.0-48.0); LYMPHOCYTES 4.9 % (15-50); MCH 29.2 pg (26.0-34.0); MCHC 32.8 g/dL (31.0-37.0); MONOCYTES 8.8 % (2-11); NEUTROPHILS 84.9 % (40-80); PLATELET COUNT 429 10x3/uL (130-400); RBC 2.49 10x6/uL (4.00-5.40); RDW 14.3 % (11.5-14.5); WBC 20.7 10x3/uL (4.8-10.8)
[2021-05-12 06:40] LABS: HEMOGLOBIN 7.3 g/dL (12-16)
[2021-05-12 07:12] LABS: ALBUMIN 2.7 g/dL (3.4-5.0); ANION GAP 12.6 mmol/L (8-16); BILIRUBIN - TOTAL 1.37 mg/dL (0.2-1.3); CALCIUM 8.4 mg/dL (8.5-10.1); CARBON DIOXIDE 23.5 mmol/L (21.0-32.0); CREATININE - SERUM 1.1 mg/dL (0.6-1.3); POTASSIUM - SERUM 4.1 mmol/L (3.5-5.1); PROTEIN - SERUM 6.3 g/dL (6.4-8.2)
[2021-05-12 08:27] VITALS: BP 155/84
--- NOTE | 2021-05-12 09:49 | NUR ---
PATIENT AA0X4 RESP EVEN AND NON LABORED, NO S/S OF DISTRESS, MEDICATIONS ADMINISTERED WITH NO COMPLICATIONS, IV MEDICATIONS ADMINSITERED, PAIN MEDICATIONS ADMINISTERED, LINE DRAW PERFORMED, 10CC FLUSH, 10CC BLOOD DRAWN AND WASTED, 5CC DRAW FOR LAB, 10CC FLUSH, NO FURTHER NEEDS AT THIS TIME, CLIR, BLP
[2021-05-12 11:45] VITALS: BP 153/81
--- NOTE | 2021-05-12 12:51 | NUR ---
Nutrition follow-up: Chart and labs reviewed Diet advanced to regular as tolerated; however, pt with poor po intake at this time. Appetite could be poor due to the affects of dextrose from TPN causing anorexia. Recommend decreasing TPN to 40 ml/hr to see if appetite will improve. If appetite improves to > 60% of meals, recommend discontinuing TPN RDN will follow-up 05/13/21.
--- NOTE | 2021-05-12 13:49 | NUR ---
PATIENT BLOOD STARTED AT 1345 VITALS 131/96,RESP 28, TEMP 103.2 AXILLARY, PULSE 131
--- NOTE | 2021-05-12 19:24 | NUR ---
RECIEVED LAYING IN BED WITH EYES OPEN AND FAMILY AT BEDSIDE. ALERT AND ORIENTED X4. DR. DYE IN TO SEE HER WITH NEW ORDERS. BEDFAST AT THIS TIME.
[2021-05-12 20:00] VITALS: BP 143/75
[2021-05-13] VITALS (14 sets, daily range): BP systolic 111–142; BP diastolic 7–94
[2021-05-13 06:10] LABS: MCH 29.3 pg (26.0-34.0); MCHC 32.3 g/dL (31.0-37.0); MCV 90.7 fL (80.0-100.0); MEAN PLATELET VOLUME 8.6 fL (7.4-10.4); RDW 14.8 % (11.5-14.5)
[2021-05-13 06:28] LABS: HEMOGLOBIN 9.7 g/dL (12-16); PLATELET COUNT 574 10x3/uL (130-400); WBC 32.1 10x3/uL (4.8-10.8)
[2021-05-13 06:46] LABS: ALBUMIN 2.8 g/dL (3.4-5.0); ANION GAP 15.8 mmol/L (8-16); BILIRUBIN - TOTAL 3.18 mg/dL (0.2-1.3); CALCIUM 8.4 mg/dL (8.5-10.1); CARBON DIOXIDE 22.1 mmol/L (21.0-32.0); MAGNESIUM - SERUM 2.3 mg/dL (1.8-2.4); PROTEIN - SERUM 6.7 g/dL (6.4-8.2)
[2021-05-13 07:12] LABS: CREATININE - SERUM 1.6 mg/dL (0.6-1.3); POTASSIUM - SERUM 5.9 mmol/L (3.5-5.1)
--- NOTE | 2021-05-13 08:12 | NUR ---
Nutrition follow-up: Chart and labs reviewed K: 5.9 RDN ordered current TPN stopped and D10 @ 30 ml/hr started until new TPN bag with decreased K ready to hang.
[2021-05-13 11:08] LABS: EOSINOPHILS 1 % (0-7); LYMPHOCYTES 5 % (15-50); MONOCYTES 7 % (2-11); NEUTROPHILS 85 % (40-80); PLATELET ESTIMATE INCREASED; ROULEAUX OCC
[2021-05-13 13:07] LABS: INR 3.4 (0.85-1.17); PROTIME 31.9 SECONDS (11.6-15.0)
--- NOTE | 2021-05-13 13:16 | NUR ---
PATIENT TRANSFERED BACK TO ICU PER PASHA, TELEMETRY RETURNED TO ICU MONITORS
--- NOTE | 2021-05-13 13:26 | MORECARE ---
CASE MANAGEMENT DISCHARGE SUMMARY PATIENT: LEE FLANAGAN UNIT: [id number] ADM DATE: 05/03/21 AGE: 40 : 80 SEX: F ROOM/BED: D.7143 AUTHOR: KIMBERLY STONE PHYSICIAN: REFERRING PHYSICIAN: HARVINDER NOLAN MD DATE OF SERVICE: 05/13/21 Case Management Discharge Planning Summary COMMENTS ENTERED DATE: 05/13/21 13:13 CT COMMENT TYPE: Discharge Planning REVIEWER: Dorothea Salvador I spoke with Shanta Abarca about getting help trying to get her transferred to a higher level of care. She stated it was ok to use the transfer center for her. I called and spoke with Jessica at the transfer center. I have initiated the transfer and faxed clinicals to Jessica fax # is [phone] call back number for Jessica is [phone] ENTERED DATE: 05/11/21 16:21 CT COMMENT TYPE: Discharge Planning REVIEWER: Jose Mortensen Telephone conversation with patient's spouse, Silvestre Flanagan, at 1557 on 11 May 2021 to complete DC plan and needs. Patient lives independently with her spouse Silvestre. Mr. Flanagan stated that their home is safe and has electricity and running water. Mr. Flanagan stated that the patient can enter the home without difficulty, however at this point he is unsure of her mobility and would like for Physical Therapy to assess. Mr. Flanagan stated that the patient has no problems paying for medications and she fills her medications at [facility] in [place], [place]. Mr. Flanagan stated that the patient's primary care physician is Dr. Gail Mancera in [place]. At discharge, the patient plans to return home and feels this is a safe discharge. CM discussed availability of home health, rehab services, and medical equipment. Mr. Flanagan declined HHS, SNF, IPR, and DME at this time. Mr. Flanagan stated that there is a plan in place for his mother and other family members to watch over his while she is home during the day. Mr. Flanagan voiced no other needs at this time and is satisfied with DC plan. Transportation provider at discharge will be with Mr. Flanagan. CM will continue to follow and will assist as needed with dc plans/needs. DCP REVIEW SUMMARY ANTICIPATED D/C DATE: EXPECTED LOS : CASE STATUS: DCP Initiated INITIAL REVIEW: 05/03/2021 INITIAL REVIEWER: Jose Mortensen FINAL DISCHARGE DISPOSITION: : FINAL REVIEWER: FINAL REVIEW DATE: DCP Focus Questions & Answers DCP Evaluation QUESTION: ANSWER Patient and/or caregiver agree upon recommended discharge plan? : Yes Family / Caregiver's ability to cope with chronic illness: : a. Adequate (ability to meet patient's medical needs, ensures patient attends medical appts.) Patient's current cognitive status: : *Oriented to person, place, situation, time and present Patient's ability to cope with chronic illness : d. No chronic illness Patient gives permission to discuss discharge plans with: (name, relationship and number) : spouse, Silvestre Flanagan, Does the patient have the ability to pay for or attain post discharge needs / services? : Yes Functional screen assessment: : Basic needs can adequately be met by self Family / Caregiver's ability to cope with chronic illness: : a. Adequate (ability to meet patient's medical needs, ensures patient attends medical appts.) Physical Status: : Independent with ADL's Equipment needed for post hospitalization: : None Is there a likelihood that the patient will require additional services to return to the preadmission environment? : Yes Living Arrangements: : Home with Spouse/Significant Other Patient with capacity for self-care or can be cared for in same environment as prior to hospitalization? : Yes Baseline cognitive status: : *Oriented to person, place, situation, time and present Physical environment modification needed / anticipated for discharge: : No Medication Management: : Patient states can read and understand medication labels Medication Management: : Patient states can afford medications Pharmacy name(s): : [facility] Does Patient have transportation to get home and to follow-up medical appointments when discharged from the hospital? : Yes Would patient like to participate in any Care Coordination programs (if applicable): : Not applicable Does the patient have electricity at home? : Yes Does the patient have running water in their house? : Yes Equipment in use: : None Mental health screen: : No mental health history DCP Re-evaluation QUESTION: ANSWER Would patient like to participate in any Care Coordination programs (if applicable): : Not applicable PATIENT: LEE FLANAGAN ENCOUNTER: [id number] MEDICAL RECORD#: [id number] ADMISSION DATE: 05/03/2021 DISCHARGE DATE: ATTENDING MD: HARVINDER WOODARD : AGE: 40 MARITAL STATUS: M DC PLAN ID: [id number] FACILITY: [facility] PRINTED ON: 05/13/21 13:26 CT All edits/amendments must be made on the electronic document DICTATION DATE: 05/13/21 132 GEOGRAPHY DEPARTMENT CHAIR: YONNY 05/13/21 1326 RPT#: [id number] DC DATE: STATUS: ADM IN [facility] [address] [place] [address] END OF REPORT
--- NOTE | 2021-05-13 17:30 | DS ---
PATIENT:LEE FLANAGAN :80 MEDICAL RECORD: [id number] DISCHARGE SUMMARY ADMISSION DATE: 05/03/21 DISCHARGE DATE: CHIEF COMPLAINT: 1. Septicemia. 2. Acute kidney injury. 3. Marked leukocytosis. 4. Portal vein thrombosis. 5. Small bowel swelling. 6. Ileus. 7. Upper gastrointestinal bleed. 8. Acute kidney injury. 9. Postop laparoscopic cholecystectomy, intraoperative cholangiography, liver biopsy and appendectomy. 10. Hypercoagulability. 11. Right pleural effusion. 12. Ascites. 13. Acute hypoxemic respiratory failure. 14. Right lower lobe infiltrate, suspect aspiration pneumonia. 15. Bibasilar atelectasis. 16. Hematemesis likely due to Beverly-Dolan tear. 17. Hypernatremia. 18. Acute blood loss anemia. 19. Dilutional anemia requiring transfusion. 20. History of hypertension. 21. History of migraine headaches. 22. History of baseline tachycardia. 23. History of seasonal allergies. 24. Gastroesophageal reflux. 25. Anxiety. 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 She is a survey and mapping technician. She was having band-like epigastric abdominal pain. She underwent a CT scan at [facility] in [place], which revealed gallstones and possible appendicitis. The patient really did not know any of the surgeons in [place] as it is mainly [facility] surgeons that practice there now. She wanted to have her operation performed by me. She came to [facility] in [place]. She underwent laparoscopic cholecystectomy, intraoperative cholangiography, liver biopsy as well as appendectomy. The indication for the liver biopsy was hepatomegaly. The pathology on the gallbladder was chronic cholecystitis with cholesterolosis and cholelithiasis. The liver biopsy revealed fatty liver disease with macrovesicular steatosis to involve about 50% of the hepatic parenchyma. The appendix was read out as chronic appendicitis as well as focal endometriosis within the serosa and muscular layer. The patient had some nausea and vomiting postoperatively. She was dismissed home. I checked on her a few days later and was shocked to have found that she had been admitted to the ICU at [facility] in [place] and had a white count DISCHARGE SUMMARY REPORT [id number] LEE FLANAGAN of greater than 30,000. A CT scan was performed there. There was no evidence of an iatrogenic injury from the operation. When I performed the operation, as I entered the abdomen, I did a Grecia cutdown technique, which is a very safe technique to enter the abdomen and the operation was very uneventful. Anyhow, I was perplexed to find out that she was so ill. The surgeon there wanted her transferred back to [facility]. We were happy to take her back. A CT scan was performed before she left. The CT scan was compared to the preoperative CT scan and it appears that the postoperative CT scan demonstrates a portal vein thrombosis as well as swollen small bowel. The preop CT scan in retrospect likely represents a portal vein thrombosis as well. So in retrospect, her symptoms, which could be accounted for by symptomatic gallstones, likely instead represented pain from a portal vein thrombosis. Anyhow, this brings us up to the most recent hospitalization. She was started on heparin drip. She was having upper gastrointestinal bleeding, which might have been due to stress gastritis, but more likely due to a Beverly-Dolan tear. This was treated with Carafate as well as IV proton-pump inhibitor. She was started on a Zofran drip. Her white count was significantly elevated and she was having some fever and I was very concerned about ischemic or necrotic bowel; however, on heparin her condition improved, so we continued to treat her nonoperatively. She had an acute kidney injury, so she received a good bit of IV fluids and later in the hospitalization this proved to be somewhat problematic. Anyhow, her ileus resolved. She was started on a diet. She was having bowel movements. I obtained a small bowel follow through to ensure continuity of the small bowel and indeed small bowel was in continuity. There was no leakage. The small bowel swelling appeared to have improved and she was having peristalsis. Her condition continued to improve. She was having some bowel movements. Her abdomen remained distended and fairly firm, but on Monday of this week, she was complaining of no pain at all and her abdomen was nontender. Anyhow within 24 hours, her condition had changed and on Monday she was in moderate distress. A CT scan was performed, it revealed ascites. It revealed improvement in the right pleural effusion after a thoracentesis had been performed. It revealed a probable decrease in size of the portal vein thrombosis and some recanalization around or through the portal vein thrombus, which I found encouraging. The thickness of the small bowel is likely somewhat improved on the CT scan as well. Her renal function had returned to normal before the CT scan. For that reason, I did give intravenous contrast and this proved beneficial in making some of the CT diagnoses. However, she was really pretty miserable. Her abdomen was distended and I think this is due to third spacing from IV fluids, (which she received a good deal) as well as the ascites present within the abdomen. The next day, (which is the day that I am dictating this discharge summary,) the 13 of May, she looks much worse. Her white count was up over 30. She is starting to have fever up to 100.8, tachycardic at 120; however, she does have baseline tachycardia at home and is on metoprolol for this. Her renal function had bumped up due to acute kidney injury and this may be due to 1) septicemia, or 2)the fact that I gave her 1 mg of Bumex last night in order to assist her in mobilizing some of the IV fluids and perhaps the ascites, and/or the 3) IV contrast that was given to her during the CT scan. I suspect it was a combination of factors. DISCHARGE SUMMARY REPORT [id number] LEE FLANAGAN The patient's desired a transfer to a higher level of care. I agreed. Previously, I discussed with the interventional radiologists here if possible interventions to improve her conditions and to perhaps lyse or aspirate the portal venous clot. They did have two ideas: 1) one was essentially a transhepatic approach to the hepatic veins, to cross over into the portal venous system and then to either lyse or aspirate the clot. They stated that this would be a challenging procedure. Another one is where the spleen is actually percutaneously accessed and a wire enters the splenic vein, goes in the portal venous system and a lysis or aspiration was performed with that approach. They stated that if that was going to occur it would need to occur in a larger city and that would not be a service that they would be able to provide here. Anyhow, she is worse this morning. She is not on pressors. She is being moved to the ICU. Her oxygen needs have increased. The increased white count is very concerning. Due to an elevated INR, I do not think it would be safe to perform a percutaneous paracentesis. One option would be operate and to go back through my umbilical trocar site and look around and see if there is any nonviable bowel and also aspirate the ascites. The was not in favor of this. He would like to wait and see if we can get an ICU bed in [place]. That is pending. We are waiting to hear back from [facility]. I am going to plan for helicopter transportation once we have an ICU bed. I had a very pleasant conversation with the hospitalist at [facility], Dr. Sandoval. TRANSINT:[id number] Voice Confirmation ID: [id number] DOCUMENT ID: [id number] HARVINDER NOLAN MD at 1730 CC: [id number] DICTATION DATE: 05/13/21 1319 PATTERN DRAFTER: 05/13/21 1529 ADM IN [facility] [address] [place] [address]
--- NOTE | 2021-05-13 17:52 | MORECARE ---
CASE MANAGEMENT DISCHARGE SUMMARY PATIENT: LEE FLANAGAN UNIT: [id number] ADM DATE: 05/03/21 AGE: 40 : 80 SEX: F ROOM/BED: D.2301 AUTHOR: KIMBERLY STONE PHYSICIAN: REFERRING PHYSICIAN: HARVINDER NOLAN MD DATE OF SERVICE: 05/13/21 Case Management Discharge Planning Summary COMMENTS ENTERED DATE: 05/13/21 16:59 CT COMMENT TYPE: Discharge Planning REVIEWER: Sona Swan CM was notified early this am that patient needs to transfer to a higher level of care. Dr. Nolan agreed to do P2P for transfer. CM called [facility] and was told they are on bed max and CM will need call back each day to check on bed status. CM was told that they could put her on waiting list but will still need to call back to check status. CM called [facility] and patient was placed on waiting list. [facility] patient was placed on waiting list for ICU bed. Dr. Nolan had spoken with Hospitalist and patient has been accepted once a bed is available. CM attempted to call [facility] and was placed on hold. Meanwhile patient was transferred to ICU 2301. Fellow CM sent referral to transfer Center. updated on status. CM received a call from [facility] stating they just had a bed available in ICU just waiting on an accepting physician. Dr. Nolan notified and he spoke with hospitalist and [facility] hospitalist spoke with IR specialist at [facility] Dr. Reardon and he stated that they would not be able to meet patients needs. Kaitlin will notify unit and family of denial. ENTERED DATE: 05/13/21 13:13 CT COMMENT TYPE: Discharge Planning REVIEWER: Dorothea Salvador I spoke with Shanta Abarca about getting help trying to get her transferred to a higher level of care. She stated it was ok to use the transfer center for her. I called and spoke with Jessica at the transfer center. I have initiated the transfer and faxed clinicals to Jessica fax # is [phone] call back number for Jessica is [phone] ENTERED DATE: 05/11/21 16:21 CT COMMENT TYPE: Discharge Planning REVIEWER: Jose Mortensen Telephone conversation with patient's spouse, Silvestre Flanagan, at 1557 on 11 May 2021 to complete DC plan and needs. Patient lives independently with her spouse Silvestre. Mr. Flanagan stated that their home is safe and has electricity and running water. Mr. Flanagan stated that the patient can enter the home without difficulty, however at this point he is unsure of her mobility and would like for Physical Therapy to assess. Mr. Flanagan stated that the patient has no problems paying for medications and she fills her medications at [facility] in [place], [place]. Mr. Flanagan stated that the patient's primary care physician is Dr. Gail Mancera in [place]. At discharge, the patient plans to return home and feels this is a safe discharge. CM discussed availability of home health, rehab services, and medical equipment. Mr. Flanagan declined HHS, SNF, IPR, and DME at this time. Mr. Flanagan stated that there is a plan in place for his mother and other family members to watch over his while she is home during the day. Mr. Flanagan voiced no other needs at this time and is satisfied with DC plan. Transportation provider at discharge will be with Mr. Flanagan. CM will continue to follow and will assist as needed with dc plans/needs. DCP REVIEW SUMMARY ANTICIPATED D/C DATE: EXPECTED LOS : CASE STATUS: DCP Initiated INITIAL REVIEW: 05/03/2021 INITIAL REVIEWER: Jose Mortensen FINAL DISCHARGE DISPOSITION: : FINAL REVIEWER: FINAL REVIEW DATE: DCP Focus Questions & Answers DCP Evaluation QUESTION: ANSWER Patient and/or caregiver agree upon recommended discharge plan? : Yes Family / Caregiver's ability to cope with chronic illness: : a. Adequate (ability to meet patient's medical needs, ensures patient attends medical appts.) Patient's current cognitive status: : *Oriented to person, place, situation, time and present Patient's ability to cope with chronic illness : d. No chronic illness Patient gives permission to discuss discharge plans with: (name, relationship and number) : spouse, Silvestre Flanagan, Does the patient have the ability to pay for or attain post discharge needs / services? : Yes Functional screen assessment: : Basic needs can adequately be met by self Family / Caregiver's ability to cope with chronic illness: : a. Adequate (ability to meet patient's medical needs, ensures patient attends medical appts.) Physical Status: : Independent with ADL's Equipment needed for post hospitalization: : None Is there a likelihood that the patient will require additional services to return to the preadmission environment? : Yes Living Arrangements: : Home with Spouse/Significant Other Patient with capacity for self-care or can be cared for in same environment as prior to hospitalization? : Yes Baseline cognitive status: : *Oriented to person, place, situation, time and present Physical environment modification needed / anticipated for discharge: : No Medication Management: : Patient states can read and understand medication labels Medication Management: : Patient states can afford medications Pharmacy name(s): : [facility] Does Patient have transportation to get home and to follow-up medical appointments when discharged from the hospital? : Yes Would patient like to participate in any Care Coordination programs (if applicable): : Not applicable Does the patient have electricity at home? : Yes Does the patient have running water in their house? : Yes Equipment in use: : None Mental health screen: : No mental health history DCP Re-evaluation QUESTION: ANSWER Would patient like to participate in any Care Coordination programs (if applicable): : Not applicable PATIENT: LEE FLANAGAN ENCOUNTER: [id number] MEDICAL RECORD#: [id number] ADMISSION DATE: 05/03/2021 DISCHARGE DATE: ATTENDING MD: HARVINDER WOODARD : AGE: 40 MARITAL STATUS: M DC PLAN ID: [id number] FACILITY: [facility] PRINTED ON: 05/13/21 17:52 CT All edits/amendments must be made on the electronic document DICTATION DATE: 05/13/211751 HAIR SPRING CUTTER: YONNY 05/13/211751 RPT#: [id number] DC DATE: STATUS: ADM IN [facility] [address] [address] END OF REPORT
[2021-05-13 20:30] LABS: APTT 46.6 SECONDS (22.8-39.4); INR 3.95 (0.85-1.17)
--- NOTE | 2021-05-13 21:34 | NUR ---
SPOKE WITH [facility], PT HAS BEEN ASSIGNED A BED. FACESHEET FAXED TO [phone], FAX TRANSMISSION CONFIRMED.
[2021-05-14] VITALS (7 sets, daily range): BP systolic 116–145; BP diastolic 66–92
--- NOTE | 2021-05-14 01:21 | NUR ---
1900 - ASSUMED CARE OF PT. PT IN BED AT THIS TIME. 11L O2 VIA HIGH FLOW NC. PT APPEARS TO BE HAVING SOME DIFICULTY BREATHING. BREATHS ARE SHALLOW, IRREGULAR AND IRREGULAR. 0 SPOKE WITH MANUEL AT [facility]. PT HAS BEEN ACCEPTED (DR. BOURNE). NO BED AVAILABLE AT THIS TIME. WILL TIFFANIEUE TO MONITOR 0130 - PT BEGAN TO VOMIT. ZOFRAN GIVEN PER ORDER.
--- NOTE | 2021-05-14 01:43 | NUR ---
0030 - PT WOKE UP AND WAS CONFUSED. SHE THOUGHT SHE WAS AT PROM. PT HAS BECOME INTERMITTENTLY CONFUSED TONIGHT. ABLE TO REORIENT. WILL CONTINUE TO MONITOR.
--- NOTE | 2021-05-14 02:59 | NUR ---
PT STARTED TO DESAT, HIGH 70s. PLACED PT ON A NRB AT 15L. O2 SATS UP TO 100% APPROX 60 SECONDS. WILL CONTINUE TO MONITOR
--- NOTE | 2021-05-14 03:45 | NUR ---
Pt o2 at 78% applied non rebreather per RT. Pt lethargic, respiratory rate elevated. Dr Waddell at bedside because of pt deteriorating condition. Dr Waddell advises to intubate. Dr Waddell spoke with the who is inagreement with intubation. Called Dr Syed to update condtion. Dr Syed is in agreement with intubation.
[2021-05-14 05:14] LABS: ALBUMIN 2.7 g/dL (3.4-5.0); ANION GAP 9.7 mmol/L (8-16); BILIRUBIN - TOTAL 2.33 mg/dL (0.2-1.3); CALCIUM 7.8 mg/dL (8.5-10.1); CREATININE - SERUM 1.8 mg/dL (0.6-1.3); MAGNESIUM - SERUM 2.3 mg/dL (1.8-2.4); POTASSIUM - SERUM 5.1 mmol/L (3.5-5.1); PROTEIN - SERUM 6.2 g/dL (6.4-8.2); VANCOMYCIN - RANDOM 11.9 ug/mL (10.0-20.0)
[2021-05-14 05:20] LABS: CARBON DIOXIDE 31.4 mmol/L (21.0-32.0)
[2021-05-14 07:06] LABS: APTT 138.8 SECONDS (22.8-39.4)
[2021-05-14 07:23] LABS: PROTIME > 120.0 SECONDS (11.6-15.0); RDW 15.1 % (11.5-14.5)
[2021-05-14 07:24] LABS: BASOPHILS 0.2 % (0-2); EOSINOPHILS 0.1 % (0-7); LYMPHOCYTES 3.2 % (15-50); MCH 29.7 pg (26.0-34.0); MCHC 32.9 g/dL (31.0-37.0); MCV 90.4 fL (80.0-100.0); MEAN PLATELET VOLUME 7.5 fL (7.4-10.4); MONOCYTES 8.5 % (2-11)
[2021-05-14 07:34] LABS: RBC 2.47 10x6/uL (4.00-5.40); WBC 20.4 10x3/uL (4.8-10.8)
[2021-05-14 07:35] LABS: HEMATOCRIT 22.3 % (36.0-48.0); HEMOGLOBIN 7.3 g/dL (12-16); PLATELET COUNT 455 10x3/uL (130-400)
--- NOTE | 2021-05-14 10:02 | MORECARE ---
CASE MANAGEMENT DISCHARGE SUMMARY PATIENT: LEE FLANAGAN UNIT: [id number] ADM DATE: 05/03/21 AGE: 40 : 80 SEX: F ROOM/BED: D.2301 AUTHOR: CHASE,DOC PHYSICIAN: REFERRING PHYSICIAN: HARVINDER NOLAN MD DATE OF SERVICE: 05/14/21 Case Management Discharge Planning Summary COMMENTS ENTERED DATE: 05/14/21 9:56 CT COMMENT TYPE: Discharge Planning REVIEWER: Kaitlin Quijano Late entry for 05/13/21: CM informed patient's on status of Transfer. [facility] declined. On wait list at [facility]. Awaiting determination from [facility]. Transfer center has sent request to [facility] and will now start working on sending referral to [facility]. Spouse verbalized understanding. ENTERED DATE: 05/13/21 16:59 CT COMMENT TYPE: Discharge Planning REVIEWER: Sona Swan CM was notified early this am that patient needs to transfer to a higher level of care. Dr. Nolan agreed to do P2P for transfer. CM called [facility] and was told they are on bed max and CM will need call back each day to check on bed status. CM was told that they could put her on waiting list but will still need to call back to check status. CM called [facility] and patient was placed on waiting list. [facility] patient was placed on waiting list for ICU bed. Dr. Nolan had spoken with Hospitalist and patient has been accepted once a bed is available. YULY attempted to call [facility] and was placed on hold. Meanwhile patient was transferred to ICU 2300. Fellow CM sent referral to transfer Center. updated on status. YULY received a call from [facility] stating they just had a bed available in ICU just waiting on an accepting physician. Dr. Nolan notified and he spoke with hospitalist and [facility] hospitalist spoke with IR specialist at [facility] Dr. Reardon and he stated that they would not be able to meet patients needs. Kaitlin will notify unit and family of denial. ENTERED DATE: 05/13/21 13:13 CT COMMENT TYPE: Discharge Planning REVIEWER: Dorothea Salvador I spoke with Shanta Abarca about getting help trying to get her transferred to a higher level of care. She stated it was ok to use the transfer center for her. I called and spoke with Jessica at the transfer center. I have initiated the transfer and faxed clinicals to Jessica fax # is [phone] call back number for Jessica is [phone] ENTERED DATE: 05/11/21 16:21 CT COMMENT TYPE: Discharge Planning REVIEWER: Jose Mortensen Telephone conversation with patient's spouse, Silvestre Flanagan, at 1557 on 11 May 2021 to complete DC plan and needs. Patient lives independently with her spouse Silvestre. Mr. Flanagan stated that their home is safe and has electricity and running water. Mr. Flanagan stated that the patient can enter the home without difficulty, however at this point he is unsure of her mobility and would like for Physical Therapy to assess. Mr. Flanagan stated that the patient has no problems paying for medications and she fills her medications at [facility] in [place], [place]. Mr. Flanagan stated that the patient's primary care physician is Dr. Gail Mancera in [place]. At discharge, the patient plans to return home and feels this is a safe discharge. CM discussed availability of home health, rehab services, and medical equipment. Mr. Flanagan declined HHS, SNF, IPR, and DME at this time. Mr. Flanagan stated that there is a plan in place for his mother and other family members to watch over his while she is home during the day. Mr. Flanagan voiced no other needs at this time and is satisfied with DC plan. Transportation provider at discharge will be with Mr. Flanagan. CM will continue to follow and will assist as needed with dc plans/needs. DCP REVIEW SUMMARY ANTICIPATED D/C DATE: EXPECTED LOS : CASE STATUS: DCP Initiated INITIAL REVIEW: 05/03/2021 INITIAL REVIEWER: Jose Mortensen FINAL DISCHARGE DISPOSITION: : FINAL REVIEWER: FINAL REVIEW DATE: DCP Focus Questions & Answers DCP Evaluation QUESTION: ANSWER Patient and/or caregiver agree upon recommended discharge plan? : Yes Family / Caregiver's ability to cope with chronic illness: : a. Adequate (ability to meet patient's medical needs, ensures patient attends medical appts.) Patient's current cognitive status: : *Oriented to person, place, situation, time and present Patient's ability to cope with chronic illness : d. No chronic illness Patient gives permission to discuss discharge plans with: (name, relationship and number) : spouse, Silvestre Flanagan, Does the patient have the ability to pay for or attain post discharge needs / services? : Yes Functional screen assessment: : Basic needs can adequately be met by self Family / Caregiver's ability to cope with chronic illness: : a. Adequate (ability to meet patient's medical needs, ensures patient attends medical appts.) Physical Status: : Independent with ADL's Equipment needed for post hospitalization: : None Is there a likelihood that the patient will require additional services to return to the preadmission environment? : Yes Living Arrangements: : Home with Spouse/Significant Other Patient with capacity for self-care or can be cared for in same environment as prior to hospitalization? : Yes Baseline cognitive status: : *Oriented to person, place, situation, time and present Physical environment modification needed / anticipated for discharge: : No Medication Management: : Patient states can read and understand medication labels Medication Management: : Patient states can afford medications Pharmacy name(s): : [facility] Does Patient have transportation to get home and to follow-up medical appointments when discharged from the hospital? : Yes Would patient like to participate in any Care Coordination programs (if applicable): : Not applicable Does the patient have electricity at home? : Yes Does the patient have running water in their house? : Yes Equipment in use: : None Mental health screen: : No mental health history DCP Re-evaluation QUESTION: ANSWER Would patient like to participate in any Care Coordination programs (if applicable): : Not applicable PATIENT: LEE FLANAGAN ENCOUNTER: [id number] MEDICAL RECORD#: [id number] ADMISSION DATE: 05/03/2021 DISCHARGE DATE: ATTENDING MD: HARVINDER WOODARD : AGE: 40 MARITAL STATUS: M DC PLAN ID: [id number] FACILITY: [facility] PRINTED ON: 05/14/21 10:02 CT All edits/amendments must be made on the electronic document DICTATION DATE: 05/14/21 1002 SENIOR SOFTWARE DEVELOPER: DM 05/14/21 1002 RPT#: [id number] DC DATE: STATUS: ADM IN [facility] [address] [place] [address] END OF REPORT
--- NOTE | 2021-05-14 10:14 | MORECARE ---
CASE MANAGEMENT DISCHARGE SUMMARY PATIENT: LEE FLANAGAN UNIT: [id number] ADM DATE: 05/03/21 AGE: 40 : 80 SEX: F ROOM/BED: D.2301 AUTHOR: CHASE,DOC PHYSICIAN: REFERRING PHYSICIAN: HARVINDER NOLAN MD DATE OF SERVICE: 05/14/21 Case Management Discharge Planning Summary COMMENTS ENTERED DATE: 05/14/21 9:58 CT COMMENT TYPE: Discharge Planning REVIEWER: Kaitlin Quijano CM notified by ICU, Everardo that [facility] has requested records. CM faxed records as requested. CM called and spoke with [facility] transfer center. No beds available. Patient on wait list. CM called and spoke with transfer center at [facility]. They declined patient d/t capacity and stated patient will not go on their wait list d/t how long it already is. CM called [facility] transfer center. Spoke with Araseli. She states: [facility] said no, [facility] said no, [facility] requested records and transfer center has faxed them. Awaiting determination. [facility]-on wait list, no beds. [facility]-on wait list. [facility] in [place] -CM faxed records this am and received fax confirmation. Transfer Center will call them for follow up. [facility] in [place] declined d/t capacity. [facility] declined d/t capacity. [facility] in [place]'s physician declined-could not meet patient needs. [facility] declined-facility does not have IR specialist there. CM informed patient's spouse on all above information. He verbalized understanding. CM spoke with Dr. Nolan about status of transfer request. ENTERED DATE: 05/14/21 9:56 CT COMMENT TYPE: Discharge Planning REVIEWER: Kaitlin Quijano Late entry for 05/13/21: CM informed patient's on status of Transfer. [facility] declined. On wait list at [facility]. Awaiting determination from [facility]. Transfer center has sent request to [facility] and will now start working on sending referral to [facility]. Spouse verbalized understanding. ENTERED DATE: 05/13/21 16:59 CT COMMENT TYPE: Discharge Planning REVIEWER: Sona Swan CM was notified early this am that patient needs to transfer to a higher level of care. Dr. Nolan agreed to do P2P for transfer. CM called [facility] and was told they are on bed max and CM will need call back each day to check on bed status. CM was told that they could put her on waiting list but will still need to call back to check status. CM called [facility] and patient was placed on waiting list. [facility] patient was placed on waiting list for ICU bed. Dr. Nolan had spoken with Hospitalist and patient has been accepted once a bed is available. CM attempted to call [facility] and was placed on hold. Meanwhile patient was transferred to ICU 2301. Fellow CM sent referral to transfer Center. updated on status. CM received a call from [facility] stating they just had a bed available in ICU just waiting on an accepting physician. Dr. Nolan notified and he spoke with hospitalist and [facility] hospitalist spoke with IR specialist at [facility] Dr. Reardon and he stated that they would not be able to meet patients needs. Kaitlin will notify unit and family of denial. ENTERED DATE: 05/13/21 13:13 CT COMMENT TYPE: Discharge Planning REVIEWER: Dorothea Salvador I spoke with Shanta Abarca about getting help trying to get her transferred to a higher level of care. She stated it was ok to use the transfer center for her. I called and spoke with Jessica at the transfer center. I have initiated the transfer and faxed clinicals to Jessica fax # is [phone] call back number for Jessica is [phone] ENTERED DATE: 05/11/21 16:21 CT COMMENT TYPE: Discharge Planning REVIEWER: Jose Mortensen Telephone conversation with patient's spouse, Silvestre Flanagan, at 1557 on 11 May 2021 to complete DC plan and needs. Patient lives independently with her spouse Silvestre. Mr. Flanagan stated that their home is safe and has electricity and running water. Mr. Flanagan stated that the patient can enter the home without difficulty, however at this point he is unsure of her mobility and would like for Physical Therapy to assess. Mr. Flanagan stated that the patient has no problems paying for medications and she fills her medications at [facility] in [place], [place]. Mr. Flanagan stated that the patient's primary care physician is Dr. Gail Mancera in [place]. At discharge, the patient plans to return home and feels this is a safe discharge. CM discussed availability of home health, rehab services, and medical equipment. Mr. Flanagan declined HHS, SNF, IPR, and DME at this time. Mr. Flanagan stated that there is a plan in place for his mother and other family members to watch over his while she is home during the day. Mr. Flanagan voiced no other needs at this time and is satisfied with DC plan. Transportation provider at discharge will be with Mr. Flanagan. CM will continue to follow and will assist as needed with dc plans/needs. DCP REVIEW SUMMARY ANTICIPATED D/C DATE: EXPECTED LOS : CASE STATUS: DCP Initiated INITIAL REVIEW: 05/03/2021 INITIAL REVIEWER: Jose Mortensen FINAL DISCHARGE DISPOSITION: : FINAL REVIEWER: FINAL REVIEW DATE: DCP Focus Questions & Answers DCP Evaluation QUESTION: ANSWER Patient and/or caregiver agree upon recommended discharge plan? : Yes Family / Caregiver's ability to cope with chronic illness: : a. Adequate (ability to meet patient's medical needs, ensures patient attends medical appts.) Patient's current cognitive status: : *Oriented to person, place, situation, time and present Patient's ability to cope with chronic illness : d. No chronic illness Patient gives permission to discuss discharge plans with: (name, relationship and number) : spouse, Silvestre Flanagan, Does the patient have the ability to pay for or attain post discharge needs / services? : Yes Functional screen assessment: : Basic needs can adequately be met by self Family / Caregiver's ability to cope with chronic illness: : a. Adequate (ability to meet patient's medical needs, ensures patient attends medical appts.) Physical Status: : Independent with ADL's Equipment needed for post hospitalization: : None Is there a likelihood that the patient will require additional services to return to the preadmission environment? : Yes Living Arrangements: : Home with Spouse/Significant Other Patient with capacity for self-care or can be cared for in same environment as prior to hospitalization? : Yes Baseline cognitive status: : *Oriented to person, place, situation, time and present Physical environment modification needed / anticipated for discharge: : No Medication Management: : Patient states can read and understand medication labels Medication Management: : Patient states can afford medications Pharmacy name(s): : [facility] Does Patient have transportation to get home and to follow-up medical appointments when discharged from the hospital? : Yes Would patient like to participate in any Care Coordination programs (if applicable): : Not applicable Does the patient have electricity at home? : Yes Does the patient have running water in their house? : Yes Equipment in use: : None Mental health screen: : No mental health history DCP Re-evaluation QUESTION: ANSWER Would patient like to participate in any Care Coordination programs (if applicable): : Not applicable PATIENT: LEE FLANAGAN ENCOUNTER: [id number] MEDICAL RECORD#: [id number] ADMISSION DATE: 05/03/2021 DISCHARGE DATE: ATTENDING MD: HARVINDER WOODARD : AGE: 40 MARITAL STATUS: M DC PLAN ID: [id number] FACILITY: [facility] PRINTED ON: 05/14/21 10:14 CT All edits/amendments must be made on the electronic document DICTATION DATE: 05/14/21 1014 CHILD CARE TEAM LEAD: YONNY 05/14/21 1014 RPT#: [id number] DC DATE: STATUS: ADM IN [facility] [address] [place] [address] END OF REPORT
--- NOTE | 2021-05-14 12:06 | NUR ---
Nutrition follow-up/reassessment: Pt in ICU; intubated, sedated with propofol @ 25 mcg/kg/min TPN @ 60 ml/hr Labs reviewed; K high normal range; PO4 still high Current TPN formula with no K, PO4 in bag Ht: 5'5" Wt: 216# Will continue current TPN formula @ 60 ml/hr Intralipids have been discontinued due to propofol in use now RDN will follow-up daily.
--- NOTE | 2021-05-14 15:41 | MORECARE ---
CASE MANAGEMENT DISCHARGE SUMMARY PATIENT: LEE FLANAGAN UNIT: [id number] ADM DATE: 05/03/21 AGE: 40 : 80 SEX: F ROOM/BED: D.2301 AUTHOR: CHASE,DOC PHYSICIAN: REFERRING PHYSICIAN: HARVINDER NOLAN MD DATE OF SERVICE: 05/14/21 Case Management Discharge Planning Summary COMMENTS ENTERED DATE: 05/14/21 9:58 CT COMMENT TYPE: Discharge Planning REVIEWER: Kaitlin Quijano CM notified by ICU, Everardo that [facility] has requested records. CM faxed records as requested. CM called and spoke with [facility] transfer center. No beds available. Patient on wait list. CM called and spoke with transfer center at [facility]. They declined patient d/t capacity and stated patient will not go on their wait list d/t how long it already is. CM called [facility] transfer center. Spoke with Araseli. She states: [facility] said no, [facility] said no, [facility] requested records and transfer center has faxed them. Awaiting determination. [facility]-on wait list, no beds. [facility]-on wait list. [facility] in [place] -CM faxed records this am and received fax confirmation. Transfer Center will call them for follow up. [facility] in [place] declined d/t capacity. [facility] declined d/t capacity. [facility] in [place]'s physician declined-could not meet patient needs. [facility] declined-facility does not have IR specialist there. CM informed patient's spouse on all above information. He verbalized understanding. CM spoke with Dr. Nolan about status of transfer request. ENTERED DATE: 05/14/21 9:56 CT COMMENT TYPE: Discharge Planning REVIEWER: Kaitlin Quijano Late entry for 05/13/21: CM informed patient's on status of Transfer. [facility] declined. On wait list at [facility]. Awaiting determination from [facility]. Transfer center has sent request to [facility] and will now start working on sending referral to [facility]. Spouse verbalized understanding. ENTERED DATE: 05/13/21 16:59 CT COMMENT TYPE: Discharge Planning REVIEWER: Sona Swan CM was notified early this am that patient needs to transfer to a higher level of care. Dr. Nolan agreed to do P2P for transfer. CM called [facility] and was told they are on bed max and CM will need call back each day to check on bed status. CM was told that they could put her on waiting list but will still need to call back to check status. CM called [facility] [place] and patient was placed on waiting list. [facility] patient was placed on waiting list for ICU bed. Dr. Nolan had spoken with Hospitalist and patient has been accepted once a bed is available. CM attempted to call [facility] and was placed on hold. Meanwhile patient was transferred to ICU 2301. Fellow CM sent referral to transfer Center. updated on status. CM received a call from [facility] stating they just had a bed available in ICU just waiting on an accepting physician. Dr. Nolan notified and he spoke with hospitalist and [facility] hospitalist spoke with IR specialist at [facility] Dr. Reardon and he stated that they would not be able to meet patients needs. Kaitlin will notify unit and family of denial. ENTERED DATE: 05/13/21 13:13 CT COMMENT TYPE: Discharge Planning REVIEWER: Dorothea Salvador I spoke with Shanta Abarca about getting help trying to get her transferred to a higher level of care. She stated it was ok to use the transfer center for her. I called and spoke with Jessica at the transfer center. I have initiated the transfer and faxed clinicals to Jessica fax # is [phone] call back number for Jessica is [phone] ENTERED DATE: 05/11/21 16:21 CT COMMENT TYPE: Discharge Planning REVIEWER: Jose Mortensen Telephone conversation with patient's spouse, Silvestre Flanagan, at 1557 on 11 May 2021 to complete DC plan and needs. Patient lives independently with her spouse Silvestre. Mr. Flanagan stated that their home is safe and has electricity and running water. Mr. Flanagan stated that the patient can enter the home without difficulty, however at this point he is unsure of her mobility and would like for Physical Therapy to assess. Mr. Flanagan stated that the patient has no problems paying for medications and she fills her medications at [facility] in [place], [place]. Mr. Flanagan stated that the patient's primary care physician is Dr. Gail Mancera in [place]. At discharge, the patient plans to return home and feels this is a safe discharge. CM discussed availability of home health, rehab services, and medical equipment. Mr. Flanagan declined HHS, SNF, IPR, and DME at this time. Mr. Flanagan stated that there is a plan in place for his mother and other family members to watch over his while she is home during the day. Mr. Flanagan voiced no other needs at this time and is satisfied with DC plan. Transportation provider at discharge will be with Mr. Flanagan. CM will continue to follow and will assist as needed with dc plans/needs. DCP REVIEW SUMMARY ANTICIPATED D/C DATE: EXPECTED LOS : CASE STATUS: DCP Initiated INITIAL REVIEW: 05/03/2021 INITIAL REVIEWER: Jose Mortensen FINAL DISCHARGE DISPOSITION: : FINAL REVIEWER: FINAL REVIEW DATE: DCP Focus Questions & Answers DCP Evaluation QUESTION: ANSWER Patient and/or caregiver agree upon recommended discharge plan? : Yes Family / Caregiver's ability to cope with chronic illness: : a. Adequate (ability to meet patient's medical needs, ensures patient attends medical appts.) Patient's current cognitive status: : *Oriented to person, place, situation, time and present Patient's ability to cope with chronic illness : d. No chronic illness Patient gives permission to discuss discharge plans with: (name, relationship and number) : spouse, Silvestre Flanagan, Does the patient have the ability to pay for or attain post discharge needs / services? : Yes Functional screen assessment: : Basic needs can adequately be met by self Family / Caregiver's ability to cope with chronic illness: : a. Adequate (ability to meet patient's medical needs, ensures patient attends medical appts.) Physical Status: : Independent with ADL's Equipment needed for post hospitalization: : None Is there a likelihood that the patient will require additional services to return to the preadmission environment? : Yes Living Arrangements: : Home with Spouse/Significant Other Patient with capacity for self-care or can be cared for in same environment as prior to hospitalization? : Yes Baseline cognitive status: : *Oriented to person, place, situation, time and present Physical environment modification needed / anticipated for discharge: : No Medication Management: : Patient states can read and understand medication labels Medication Management: : Patient states can afford medications Pharmacy name(s): : [facility] Does Patient have transportation to get home and to follow-up medical appointments when discharged from the hospital? : Yes Would patient like to participate in any Care Coordination programs (if applicable): : Not applicable Does the patient have electricity at home? : Yes Does the patient have running water in their house? : Yes Equipment in use: : None Mental health screen: : No mental health history DCP Re-evaluation QUESTION: ANSWER Would patient like to participate in any Care Coordination programs (if applicable): : Not applicable PATIENT: LEE FLANAGAN ENCOUNTER: [id number] MEDICAL RECORD#: [id number] ADMISSION DATE: 05/03/2021 DISCHARGE DATE: 05/14/2021 ATTENDING MD: HARVINDER WOODARD : AGE: 40 MARITAL STATUS: M DC PLAN ID: [id number] FACILITY: [facility] PRINTED ON: 05/14/21 15:40 CT All edits/amendments must be made on the electronic document DICTATION DATE: 05/14/211539 DIRECTOR OF USER EXPERIENCE: YONNY 05/14/21 154 RPT#: [id number] DC DATE:05/14/21 STATUS: DIS IN [facility] [address] [place] [address] END OF REPORT
[2021-05-14 16:09] LABS: FUNGUS STAIN Final report (())
--- NOTE | 2021-05-14 16:34 | MORECARE ---
CASE MANAGEMENT DISCHARGE SUMMARY PATIENT: LEE FLANAGAN UNIT: [id number] ADM DATE: 05/03/21 AGE: 40 : 80 SEX: F ROOM/BED: D.2301 AUTHOR: CHASE,DOC PHYSICIAN: REFERRING PHYSICIAN: HARVINDER NOLAN MD DATE OF SERVICE: 05/14/21 Case Management Discharge Planning Summary COMMENTS ENTERED DATE: 05/14/21 9:58 CT COMMENT TYPE: Discharge Planning REVIEWER: Kaitlin Quijano CM notified by ICU, [place] [facility] [place]. CM faxed records as requested. CM called and spoke with [facility] transfer center. No beds available. Patient on wait list. CM called and spoke with transfer center at [facility]. They declined patient d/t capacity and stated patient will not go on their wait list d/t how long it already is. CM called [facility] transfer center. Spoke with Araseli. She states: [facility] said no, [facility] said no, [facility] requested records and transfer center has faxed them. Awaiting determination. [facility]-on wait list, no beds. [facility] wait list. [facility] [place]CM faxed records this am and received fax confirmation. Transfer Center will call them for follow up. [facility] in [place] declined d/t capacity. [facility] declined d/t capacity. [facility] in [place]'s physician declined-could not meet patient needs. [facility] declined-facility does not have IR specialist there. CM informed patient's spouse on all above information. He verbalized understanding. CM spoke with Dr. Nolan about status of transfer request. ENTERED DATE: 05/14/21 9:56 CT COMMENT TYPE: Discharge Planning REVIEWER: Kaitlin Quijano Late entry for 05/13/21: CM informed patient's on status of Transfer. [facility] declined. On wait list at [facility]. Awaiting determination from [facility]. Transfer center has sent request to [facility] and will now start working on sending referral to [facility]. Spouse verbalized understanding. ENTERED DATE: 05/13/21 16:59 CT COMMENT TYPE: Discharge Planning REVIEWER: Sona Swan CM was notified early this am that patient needs to transfer to a higher level of care. Dr. Nolan agreed to do P2P for transfer. CM called [facility] and was told they are on bed max and CM will need call back each day to check on bed status. CM was told that they could put her on waiting list but will still need to call back to check status. CM called [facility] and patient was placed on waiting list. [facility] patient was placed on waiting list for ICU bed. Dr. Nolan had spoken with Hospitalist and patient has been accepted once a bed is available. CM attempted to call [facility] and was placed on hold. Meanwhile patient was transferred to ICU 2301. Fellow CM sent referral to transfer Center. updated on status. CM received a call from [facility] stating they just had a bed available in ICU just waiting on an accepting physician. Dr. Nolan notified and he spoke with hospitalist and [facility] hospitalist spoke with IR specialist at [facility] Dr[facility] Reardon and he stated that they would not be able to meet patients needs. Kaitlin will notify unit and family of denial. ENTERED DATE: 05/13/21 13:13 CT COMMENT TYPE: Discharge Planning REVIEWER: Dorothea Salvador I spoke with Shanta Abarca about getting help trying to get her transferred to a higher level of care. She stated it was ok to use the transfer center for her. I called and spoke with Jessica at the transfer center. I have initiated the transfer and faxed clinicals to Jessica fax # is [phone] call back number for Jessica is [phone] ENTERED DATE: 05/11/21 16:21 CT COMMENT TYPE: Discharge Planning REVIEWER: Jose Mortensen Telephone conversation with patient's spouse, Silvestre Flanagan, at 1557 on 11 May 2021 to complete DC plan and needs. Patient lives independently with her spouse Silvestre. Mr. Flanagan stated that their home is safe and has electricity and running water. Mr. Flanagan stated that the patient can enter the home without difficulty, however at this point he is unsure of her mobility and would like for Physical Therapy to assess. Mr. Flanagan stated that the patient has no problems paying for medications and she fills her medications at [facility] in [place], [place]. Mr. Flanagan stated that the patient's primary care physician is Dr. Gail Mancera in [place]. At discharge, the patient plans to return home and feels this is a safe discharge. CM discussed availability of home health, rehab services, and medical equipment. Mr. Flanagan declined HHS, SNF, IPR, and DME at this time. Mr. Flanagan stated that there is a plan in place for his mother and other family members to watch over his while she is home during the day. Mr. Flanagan voiced no other needs at this time and is satisfied with DC plan. Transportation provider at discharge will be with Mr. Flanagan. CM will continue to follow and will assist as needed with dc plans/needs. DCP REVIEW SUMMARY ANTICIPATED D/C DATE: EXPECTED LOS : CASE STATUS: DCP Initiated INITIAL REVIEW: 05/03/2021 INITIAL REVIEWER: Jose Mortensen FINAL DISCHARGE DISPOSITION: : FINAL REVIEWER: FINAL REVIEW DATE: DCP Focus Questions & Answers DCP Evaluation QUESTION: ANSWER Patient and/or caregiver agree upon recommended discharge plan? : Yes Family / Caregiver's ability to cope with chronic illness: : a. Adequate (ability to meet patient's medical needs, ensures patient attends medical appts.) Patient's current cognitive status: : *Oriented to person, place, situation, time and present Patient's ability to cope with chronic illness : d. No chronic illness Patient gives permission to discuss discharge plans with: (name, relationship and number) : spouse, Silvestre Flanagan, Does the patient have the ability to pay for or attain post discharge needs / services? : Yes Functional screen assessment: : Basic needs can adequately be met by self Family / Caregiver's ability to cope with chronic illness: : a. Adequate (ability to meet patient's medical needs, ensures patient attends medical appts.) Physical Status: : Independent with ADL's Equipment needed for post hospitalization: : None Is there a likelihood that the patient will require additional services to return to the preadmission environment? : Yes Living Arrangements: : Home with Spouse/Significant Other Patient with capacity for self-care or can be cared for in same environment as prior to hospitalization? : Yes Baseline cognitive status: : *Oriented to person, place, situation, time and present Physical environment modification needed / anticipated for discharge: : No Medication Management: : Patient states can read and understand medication labels Medication Management: : Patient states can afford medications Pharmacy name(s): : [facility] Does Patient have transportation to get home and to follow-up medical appointments when discharged from the hospital? : Yes Would patient like to participate in any Care Coordination programs (if applicable): : Not applicable Does the patient have electricity at home? : Yes Does the patient have running water in their house? : Yes Equipment in use: : None Mental health screen: : No mental health history DCP Re-evaluation QUESTION: ANSWER Would patient like to participate in any Care Coordination programs (if applicable): : Not applicable PATIENT: LEE FLANAGAN ENCOUNTER: [id number] MEDICAL RECORD#: [id number] ADMISSION DATE: 05/03/2021 DISCHARGE DATE: 05/14/2021 ATTENDING MD: HARVINDER WOODARD : AGE: 40 MARITAL STATUS: M DC PLAN ID: [id number] FACILITY: [facility] PRINTED ON: 05/14/21 16:34 CT All edits/amendments must be made on the electronic document DICTATION DATE: 05/14/211633 CLERK STENOGRAPHER: YONNY 05/14/21 163 RPT#: [id number] DC DATE:05/14/21 STATUS: DIS IN [facility] [address] [place] [address] END OF REPORT
--- NOTE | 2021-05-15 18:14 | DS ---
PATIENT:LEE FLANAGAN :80 MEDICAL RECORD: [id number] DISCHARGE SUMMARY ADMISSION DATE: 05/03/21 DISCHARGE DATE: 05/14/21 DISCHARGE SUMMARY ADDENDUM HOSPITAL COURSE: Mrs. Flanagan's has been an excellent patient advocate. I received a call through the transfer center from [facility] and I spoke to a general surgeon there as well as to the hospital's chief dispatcher. We had a very pleasant conversation. I outlined the care that she has received while here. It is further delineated in the initial discharge summary, which I did yesterday. I have gone and talked to the patient's . I informed him that she is very ill and may not make the flight to [facility]. The argatroban has been off now for a sufficient period of time where the anticoagulant effect should be gone and she should be ready for an operation. 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 Additionally, she is anuric now. She is in multisystem failure, including lung failure with a FiO2 of 0.9. I am concerned that she has an impending compartment syndrome. I have not been over to the ICU in the past few hours to set up a bladder pressure monitor, as I have been tied up in the operating room with an emergency operation. I wished the and Mrs. Flanagan the best and he is going to be texting me in the future letting me know about her progress at [facility]. I am indebted to them for accepting this patient who is quite critically ill. TRANSINT:[id number] Voice Confirmation ID: [id number] DOCUMENT ID: [id number] HARVINDER NOLAN MD at 1814 CC: [id number] DICTATION DATE: 05/14/21 1423 OFFICE AIDE: 05/14/21 1604 DIS IN 05/14/21 [facility] [address] [place] [id number]
--- NOTE | 2021-05-17 12:04 | MORECARE ---
CASE MANAGEMENT DISCHARGE SUMMARY PATIENT: LEE FLANAGAN UNIT: [id number] ADM DATE: 05/03/21 AGE: 40 : 80 SEX: F ROOM/BED: D.2301 AUTHOR: CHASE,DOC PHYSICIAN: REFERRING PHYSICIAN: HARVINDER NOLAN MD DATE OF SERVICE: 05/17/21 Case Management Discharge Planning Summary COMMENTS ENTERED DATE: 05/14/21 9:58 CT COMMENT TYPE: Discharge Planning REVIEWER: Kaitlin Quijano CM notified by ICU, Everardo that [facility] requested records. CM faxed records as requested. CM called and spoke with [facility] transfer center. No beds available. Patient on wait list. CM called and spoke with transfer center at [facility]. They declined patient d/t capacity and stated patient will not go on their wait list d/t how long it already is. CM called [facility] transfer center. Spoke with Araseli. She states: [facility] said no, [facility] said no, [facility] requested records and transfer center has faxed them. Awaiting determination. [facility]-on wait list, no beds. [facility]-on wait list. [facility] [place] -CM faxed records this am and received fax confirmation. Transfer Center will call them for follow up. [facility] in [place] declined d/t capacity. [facility] declined d/t capacity. [facility] in [place]'s physician declined-could not meet patient needs. [facility] declined-facility does not have IR specialist there. CM informed patient's spouse on all above information. He verbalized understanding. CM spoke with Dr. Nolan about status of transfer request. ENTERED DATE: 05/14/21 9:56 CT COMMENT TYPE: Discharge Planning REVIEWER: Kaitlin Quijano Late entry for 05/13/21: CM informed patient's on status of Transfer. [facility] declined. On wait list at [facility]. Awaiting determination from [facility]. Transfer center has sent request to [facility] and will now start working on sending referral to [facility]. Spouse verbalized understanding. ENTERED DATE: 05/13/21 16:59 CT COMMENT TYPE: Discharge Planning REVIEWER: Sona Swan CM was notified early this am that patient needs to transfer to a higher level of care. Dr. Nolan agreed to do P2P for transfer. CM called [facility] and was told they are on bed max and CM will need call back each day to check on bed status. CM was told that they could put her on waiting list but will still need to call back to check status. CM called [facility] and patient was placed on waiting list. [facility] patient was placed on waiting list for ICU bed. Dr. Nolan had spoken with Hospitalist and patient has been accepted once a bed is available. CM attempted to call [facility] and was placed on hold. Meanwhile patient was transferred to ICU 2301. Fellow CM sent referral to transfer Center. updated on status. CM received a call from [facility] stating they just had a bed available in ICU just waiting on an accepting physician. Dr. Nolan notified and he spoke with hospitalist and [facility] hospitalist spoke with IR specialist at [facility] Dr. Reardon and he stated that they would not be able to meet patients needs. Kaitlin will notify unit and family of denial. ENTERED DATE: 05/13/21 13:13 CT COMMENT TYPE: Discharge Planning REVIEWER: Dorothea Salvador I spoke with Shanta Abarca about getting help trying to get her transferred to a higher level of care. She stated it was ok to use the transfer center for her. I called and spoke with Jessica at the transfer center. I have initiated the transfer and faxed clinicals to Jessica fax # is [phone] call back number for Jessica is [phone] ENTERED DATE: 05/11/21 16:21 CT COMMENT TYPE: Discharge Planning REVIEWER: Joes Mortensen Telephone conversation with patient's spouse, Silvestre Flanagan, at 1557 on 11 May 2021 to complete DC plan and needs. Patient lives independently with her spouse Silvestre. Mr. Flanagan stated that their home is safe and has electricity and running water. Mr. Flanagan stated that the patient can enter the home without difficulty, however at this point he is unsure of her mobility and would like for Physical Therapy to assess. Mr. Flanagan stated that the patient has no problems paying for medications and she fills her medications at [facility] in [place], [place]. Mr. Flanagan stated that the patient's primary care physician is Dr. Gail Mancera in [place]. At discharge, the patient plans to return home and feels this is a safe discharge. CM discussed availability of home health, rehab services, and medical equipment. Mr. Flanagan declined HHS, SNF, IPR, and DME at this time. Mr. Flanagan stated that there is a plan in place for his mother and other family members to watch over his while she is home during the day. Mr. Flanagan voiced no other needs at this time and is satisfied with DC plan. Transportation provider at discharge will be with Mr. Flanagan. CM will continue to follow and will assist as needed with dc plans/needs. DCP REVIEW SUMMARY ANTICIPATED D/C DATE: EXPECTED LOS : CASE STATUS: DCP Initiated INITIAL REVIEW: 05/03/2021 INITIAL REVIEWER: Jose Mortensen FINAL DISCHARGE DISPOSITION: : FINAL REVIEWER: FINAL REVIEW DATE: DCP Focus Questions & Answers DCP Evaluation QUESTION: ANSWER Patient gives permission to discuss discharge plans with: (name, relationship and number) : spouse, Silvestre Flanagan, Patient's ability to cope with chronic illness : d. No chronic illness Patient's current cognitive status: : *Oriented to person, place, situation, time and present Family / Caregiver's ability to cope with chronic illness: : a. Adequate (ability to meet patient's medical needs, ensures patient attends medical appts.) Patient and/or caregiver agree upon recommended discharge plan? : Yes Physical Status: : Independent with ADL's Family / Caregiver's ability to cope with chronic illness: : a. Adequate (ability to meet patient's medical needs, ensures patient attends medical appts.) Functional screen assessment: : Basic needs can adequately be met by self Does the patient have the ability to pay for or attain post discharge needs / services? : Yes Living Arrangements: : Home with Spouse/Significant Other Is there a likelihood that the patient will require additional services to return to the preadmission environment? : Yes Equipment needed for post hospitalization: : None Baseline cognitive status: : *Oriented to person, place, situation, time and present Patient with capacity for self-care or can be cared for in same environment as prior to hospitalization? : Yes Physical environment modification needed / anticipated for discharge: : No Medication Management: : Patient states can afford medications Medication Management: : Patient states can read and understand medication labels Pharmacy name(s): : [facility] Does Patient have transportation to get home and to follow-up medical appointments when discharged from the hospital? : Yes Would patient like to participate in any Care Coordination programs (if applicable): : Not applicable Does the patient have electricity at home? : Yes Does the patient have running water in their house? : Yes Equipment in use: : None Mental health screen: : No mental health history DCP Re-evaluation QUESTION: ANSWER Would patient like to participate in any Care Coordination programs (if applicable): : Not applicable PATIENT: LEE FLANAGAN ENCOUNTER: [id number] MEDICAL RECORD#: [id number] ADMISSION DATE: 05/03/2021 DISCHARGE DATE: 05/14/2021 ATTENDING MD: HARVINDER WOODARD : AGE: 40 MARITAL STATUS: M DC PLAN ID: [id number] FACILITY: [facility] PRINTED ON: 05/17/21 12:04 CT All edits/amendments must be made on the electronic document DICTATION DATE: 05/17/211203 MINER PICK: YONNY 05/17/21 120 RPT#: [id number] DC DATE:05/14/21 STATUS: DIS IN [facility] [address] [place] [address] END OF REPORT
== END 2021-05-14 15:39 | disposition short-term general hospital (02) | DRG 871 ==
LOC: D.ICU 16:45 → D.M2 05-11 10:10 → D.ICU 05-13 13:27
PROVIDERS: Emergency Medicine; Family Medicine; Internal Medicine; Internal Medicine Hematology & Oncology; Internal Medicine Pulmonary Disease; Radiology Vascular & Interventional Radiology; Surgery; ADMIT Surgery; ATTEND Surgery
PROC: 05HN33Z Insertion of Infusion Device into Left Internal Jugular Vein, Percutaneous Approach (ICD-10-PCS; principal; 2021-05-04)
PROC: 0W993ZZ Drainage of Right Pleural Cavity, Percutaneous Approach (ICD-10-PCS; 2021-05-09)
PROC: 0BH17EZ Insertion of Endotracheal Airway into Trachea, Via Natural or Artificial Opening (ICD-10-PCS; 2021-05-14)
PROC: 5A1935Z Respiratory Ventilation, Less than 24 Consecutive Hours (ICD-10-PCS; 2021-05-14)
DX: A41.9 Sepsis, unspecified organism (principal); I81 Portal vein thrombosis; J96.01 Acute respiratory failure with hypoxia; J69.0 Pneumonitis due to inhalation of food and vomit; K22.6 Gastro-esophageal laceration-hemorrhage syndrome; N17.9 Acute kidney failure, unspecified; D68.59 Other primary thrombophilia; J98.11 Atelectasis; J90 Pleural effusion, not elsewhere classified; K92.0 Hematemesis; E87.0 Hyperosmolality and hypernatremia; D62 Acute posthemorrhagic anemia; I10 Essential (primary) hypertension; K21.9 Gastro-esophageal reflux disease without esophagitis; F41.9 Anxiety disorder, unspecified; R00.0 Tachycardia, unspecified; R16.0 Hepatomegaly, not elsewhere classified; E66.9 Obesity, unspecified; Z68.36 Body mass index [BMI] 36.0-36.9, adult